=== PATIENT | female | born 1975 | race African-American/Black ===

== ENCOUNTER 2022-12-08 11:20 | Outpatient (OUT) | payer MEDICAID, SELFPAY ==
--- NOTE | 2022-12-08 11:27 | MM_ITS ---
Patient: EVELIA COSTA Exam Date: 12/08/2022 : 1975 Gender:F Ordering : DR Dwayne Bermudez . Admission #: [id number] Family : Non-Staff Physician Order #: [id number] CLICK HERE TO VIEW EXAM RADIOLOGY REPORT PROCEDURE: MM TOMOSYNTHESIS SCREENING BI COMPARISON: MG MAMM SCREEN 3D MELODIE CAD, 08/07/2020. MG MAMM SCREEN 3D MELODIE CAD, 10/29/2021. INDICATIONS: Screening Calculator Name NCI Breast Cancer Risk Assessment Tool 5 Year Breast Cancer Risk 1.00% Lifetime Breast Cancer Risk 8.90% Personal Breast Cancer No Personal Ovarian Cancer No Treatments None Family Cancers None LOCATION: [facility] BREAST COMPOSITION: Scattered areas fibroglandular density. FINDINGS: DIAGNOSTIC CATEGORY 2--BENIGN FINDING. NO CHANGE FROM COMPARISON. Scattered benign-appearing calcifications are present. Scattered benign-appearing lymph nodes are present. RIGHT BREAST: No significant suspicious finding. LEFT BREAST: No significant suspicious finding. RECOMMENDATIONS: ROUTINE MAMMOGRAM AND CLINICAL EVALUATION IN 12 MONTHS. PLEASE NOTE: A NORMAL MAMMOGRAM DOES NOT EXCLUDE THE POSSIBILITY OF BREAST CANCER. A CLINICALLY SUSPICIOUS PALPABLE LUMP SHOULD BE BIOPSIED. Dictated by: Tu Daly MD on 12/08/2022 at 14:30 Approved by: Tu Daly MD on 12/08/2022 at 14:34
== END 2022-12-08 11:21 | disposition home or self-care (01) ==
LOC: MAMMO 11:20
PROVIDERS: Visit Provider Obstetrics & Gynecology
DX: Z12.31 Encounter for screening mammogram for malignant neoplasm of breast (principal); Z01.419 Encounter for gynecological examination (general) (routine) without abnormal findings
CPT/HCPCS: 77063; 77067; 87624; G0145

== ENCOUNTER 2022-12-08 20:54 | Outpatient (REF) | payer MEDICAID, SELFPAY ==
[2022-12-11 10:10] LABS: Age Gdln ACOG Testing Note (.); HPV Aptima Negative (Negative); IGP, Aptima HPV, rfx 16/18,45 Note (.)
== END 2022-12-08 20:55 | disposition home or self-care (01) ==
LOC: LAB 20:54
PROVIDERS: Visit Provider Physician Assistant
DX: Z01.419 Encounter for gynecological examination (general) (routine) without abnormal findings (principal)
CPT/HCPCS: 87624; G0145

== ENCOUNTER 2023-12-28 10:00 | Outpatient (OUT) | payer OTHER, SELFPAY ==
--- NOTE | 2023-12-28 10:11 | MM_ITS ---
Patient Name: EVELIA COSTA MR#: [id number] : 1975 Exam Date: 12/28/2023 Ordering Doctor: DR Dwayne Bermudez . RADIOLOGY REPORT PROCEDURE: MM TOMOSYNTHESIS SCREENING BI COMPARISON: MG MAMM SCREEN 3D MELODIE CAD, 10/29/2021. MM TOMOSYNTHESIS SCREENING BI, 12/08/2022. INDICATIONS: Screening Calculator Name NCI Breast Cancer Risk Assessment Tool 5 Year Breast Cancer Risk 1.10% Lifetime Breast Cancer Risk 8.70% Personal Breast Cancer No Personal Ovarian Cancer No Treatments None Family Cancers None LOCATION: [facility] BREAST COMPOSITION: There are scattered areas of fibroglandular density. FINDINGS: DIAGNOSTIC CATEGORY 1--NEGATIVE. NO CHANGE FROM COMPARISON ASSESSMENT. Scattered benign-appearing calcifications are present. Scattered benign-appearing lymph nodes are present. RIGHT BREAST: No significant suspicious finding. LEFT BREAST: No significant suspicious finding. RECOMMENDATIONS: ROUTINE MAMMOGRAM AND CLINICAL EVALUATION IN 12 MONTHS. PLEASE NOTE: A NORMAL MAMMOGRAM DOES NOT EXCLUDE THE POSSIBILITY OF BREAST CANCER. A CLINICALLY SUSPICIOUS PALPABLE LUMP SHOULD BE BIOPSIED. Dictated by: Tu Daly MD on 12/28/2023 at 14:29 Approved by: Tu Daly MD on 12/28/2023 at 14:30
== END 2023-12-28 10:01 | disposition home or self-care (01) ==
LOC: MAMMO 10:03
PROVIDERS: Visit Provider Obstetrics & Gynecology
DX: Z12.31 Encounter for screening mammogram for malignant neoplasm of breast (principal)
CPT/HCPCS: 77063; 77067

== ENCOUNTER 2023-12-28 22:39 | Outpatient (REF) | payer OTHER, SELFPAY | END 2023-12-28 22:40 | disposition home or self-care (01) | LOC: LAB 22:39 | PROVIDERS: Visit Provider Physician Assistant | DX: Z12.31 Encounter for screening mammogram for malignant neoplasm of breast (principal); Z01.419 Encounter for gynecological examination (general) (routine) without abnormal findings | CPT/HCPCS: 87624; 88175 ==

== ENCOUNTER 2025-01-16 20:46 | Outpatient (REF) | payer OTHER, SELFPAY ==
--- OUTSIDE RECORDS SUMMARY | 2025-01-06 04:01 | XMS_ITS | Continuity of Care Document ---
Author Organization [facility] Address [address] [place] [address] Phone Care Team Providers Care Bleach Maker Name Role Phone Daija Doherty Unavailable Unavailable Allergies, Adverse Reactions, Alerts Substance Reaction Status Criticality KETOROLAC TROMETHAMINE Active No In formation Medications Medication Instructions Dosage Effective Dates (start - stop) Status Comments buspirone 10 mg tablet take 1 tablet by oral route 2 times every day as needed - Active clindamycin HCl 300 mg capsule take 1 capsule by oral route every 6 hours for 7 days - Active ibuprofen 600 mg tablet take 1 tablet by oral route 2 times every day with food as needed for pain as needed - Active M79.672 amlodipine 5 mg tablet take 1 tablet by oral route every day 5 MG - Active I10 metoprolol succinate ER 100 mg tablet,extended release 24 hr take 1 tablet by oral route every day 100 MG - Active lisinopril 10 mg-hydrochlorothia zide 12.5 mg tablet take 1 tablet by oral route every day 1.00 tablet - Active clonidine HCl 0.1 mg tablet take 1 tablet by oral route every day 0.1 MG - Active Klor-Con 20 mEq oral packet take 1 packet by oral route 2 times every day dissolved in 4-6 ounces of cold water or juice 20 MEQ - Active I10 buspirone 10 mg tablet take 1 tablet by oral route 2 times every day as needed - No Longer Active Procedures Procedure Date PREV VISIT, EST, AGE 40-64 OFFICE/OUTPATIENT VISIT, EST Post Op Visit Dental Oral Hygiene Instruction Intraoral-periapical 1st Film Bitewig-single Film Post Op Visit Dental Oral Hygiene Instruction PREV VISIT, EST, AGE 40-64 OFFICE/OUTPATIENT VISIT, EST Oral Hygiene Instruction Post Op Visit Dental OFFICE/OUTPATIENT VISIT, EST OFFICE/OUTPATIENT VISIT, EST COVID-19 Antigen Test COVID-19 Antigen Test Resin Composite 2s; Posterior Treatment Completed Nutrit Couns For Control Of Boundary Dis May Oral Hygiene Instruction Resin Composite 2s; Posterior Prophylaxis Adult Bitewings Four Films Low Risk Nutrit Couns For Control Of Boundary Dis Apr Oral Hygiene Instruction Alcohol/drug screening ROUTINE VENIPUNCTURE PREV VISIT, EST, AGE 40-64 OFFICE/OUTPATIENT VISIT, EST Prophylaxis Adult Oral Hygiene Instruction OFFICE/OUTPATIENT VISIT, EST OFFICE/OUTPATIENT VISIT, EST ROUTINE VENIPUNCTURE OFFICE/OUTPATIENT VISIT, EST OFFICE/OUTPATIENT VISIT, EST Bitewings Four Films Prophylaxis Adult Periodic Oral Eval Estab Patient 2021 Oral Hygiene Instruction ROUTINE VENIPUNCTURE OFFICE/OUTPATIENT VISIT, EST OFFICE/OUTPATIENT VISIT, EST Pfizer COVID Vaccine Admin Dose 2 COVID-19 Pfizer Covid Testing [facility] OFFICE/OUTPATIENT VISIT, EST Prophylaxis Adult Oral Hygiene Instruction Pfizer COVID Vaccine Admin Dose 1 COVID-19 Pfizer CHIROPRACTIC MANIPULATION CHIROPRACTIC MANIPULATION ROUTINE VENIPUNCTURE OFFICE/OUTPATIENT VISIT, EST OFFICE/OUTPATIENT VISIT, EST CHIROPRACTIC MANIPULATION CHIROPRACTIC MANIPULATION CHIROPRACTIC MANIPULATION Oral Hygiene Instruction Prophylaxis Adult Bitewings Four Films Periodic Oral Eval Estab Patient 2020 OFFICE/OUTPATIENT VISIT, EST OFFICE/OUTPATIENT VISIT, EST Covid Testing [facility] CHIROPRACTIC MANIPULATION CHIROPRACTIC MANIPULATION OFFICE/OUTPATIENT VISIT, EST ROUTINE VENIPUNCTURE CHIROPRACTIC MANIPULATION Prophylaxis Adult Oral Hygiene Instruction CHIROPRACTIC MANIPULATION CHIROPRACTIC MANIPULATION Covid Testing [facility] ROUTINE VENIPUNCTURE OFFICE/OUTPATIENT VISIT, EST OFFICE/OUTPATIENT VISIT, EST Periodic Oral Eval Estab Patient 2019 Bitewings Four Films Prophylaxis Adult Oral Hygiene Instruction CHIROPRACTIC MANIPULATION OFFICE/OUTPATIENT VISIT, EST OFFICE/OUTPATIENT VISIT, EST CHIROPRACTIC MANIPULATION OFFICE/OUTPATIENT VISIT, EST CHIROPRACTIC MANIPULATION CHIROPRACTIC MANIPULATION CHIROPRACTIC MANIPULATION CHIROPRACTIC MANIPULATION CHIROPRACTIC MANIPULATION OFFICE/OUTPATIENT VISIT, EST CHIROPRACTIC MANIPULATION Bitewings Four Films Periodic Oral Eval Estab Patient 2017 Prophylaxis Adult Oral Hygiene Instruction OFFICE/OUTPATIENT VISIT, EST ROUTINE VENIPUNCTURE OFFICE/OUTPATIENT VISIT, EST No Charge Resin Composite 1s; Posterior 7 Prophylaxis Adult Oral Hygiene Instruction Periodic Oral Eval Estab Patient 2016 OFFICE/OUTPATIENT VISIT, EST OFFICE/OUTPATIENT VISIT, EST OFFICE/OUTPATIENT VISIT, EST Bitewings Four Films Periodic Oral Eval Estab Patient 2015 Prophylaxis Adult Oral Hygiene Instruction OFFICE/OUTPATIENT VISIT, EST OFFICE/OUTPATIENT VISIT, EST PREVENTIVE NEW AGE 40-64 Extract; Erupted Th/exposted Rt 015 Bitewings Four Films Periodic Oral Eval Estab Patient 2013 Prophylaxis Adult Tobacco Counseling Oral Hygiene Instruction OFFICE/OUTPATIENT VISIT, EST Prophylaxis Adult Oral Hygiene Instruction Amalgam 2 Surf Prim/perm Prophylaxis Adult Oral Hygiene Instruction Intraoral-complete Series (bw) 13 Comp Oral Eval New/estab Patient 2012 Protective Orthodoxy Limited Oral Eval Intraoral-periapical 1st Film 3 Advance Directives Directive Yes / No Effective Date File Name No Information Encounters Encounter Description Practice Location Reason(s) For Visit Diagnoses Date Provider Providers Copied on Encounter [facility], [address] [place] [address], [place], [place], [id number] , [place] tel:[phone] [facility]LY [facility], [facility] No Information 5 Addy Choe. [address] [place] [address], [id number], [place]. tel:[phone] [facility], [address] [place] [address], [id number] , [place] tel:[phone] [facility] No Information 5 Addy Choe. [address] [place] [address], [id number], [place]. tel:[phone] [facility], [address] [place] [address], [id number] , [place] tel: [phone] [facility], [facility] No Information 5 Addy Choe. [address] [place] [address], [address], [place]. tel:[phone] PREV VISIT, EST, AGE 40-64 [facility], [address] [place] [address], [id number] , [place] tel: [phone] [facility], [facility] Annual wellness (chief complaint) lab draw (chief complaint) Depression with anxietyEssential hypertensionHype rlipidemiaPolyur iaScreening for HIV (human immunodeficiency virus)Encounter for hepatitis C screening test for low risk patientUmbilical dischargeAnnual physical examScreening mammogram for breast cancer 5 Addy Choe. [address] [place] [address], [address], [place]. tel:[phone] OFFICE/OUTPA TIENT VISIT, EST [facility], [address] [place] [address], [id number] , [place] tel:[phone] [facility] [place] HTN (chief complaint) Essential hypertension 4 Addy Choe. [address] [place] [address], [address], [place]. tel:[phone] [facility], [address] [place] [address], [id number] , [place] tel:[phone] [facility], [facility] Dental Clinic filling (chief complaint) Encounter for screening for dental disorders 4 Krish RODNEYAmada Jeanine. . tel:[phone] [facility], [address] [place] [address], [id number] , [place] tel: [phone] Dental Clinic dental limited (chief complaint) Encounter for screening for dental disorders 4 Krish JEM Jeanine. . tel:[phone] PREV VISIT, [facility], AGE 40-64 [facility], [address] [place] [address], [id number] , [place] tel:[phone] [facility] [place] Annual wellness (chief complaint) Encounter for general adult medical examination without abnormal findingsEssentia l hypertensionBody mass index [BMI] 38.0-38.9, adultAnxietyFati brady, unspecified typeEncounter for general adult medical examination without abnormal findings 4 Addy Choe. [address] [place] [address], [address], [place]. tel:[phone] OFFICE/OUTPA TIENT VISIT, [facility], [address] [place] [address], [id number] , [place] tel: [phone] [place] 3 month HTN (chief complaint) Essential hypertensionAnxi etyBody mass index [BMI] 37.0-37.9, adult 3 Addy Choe. [address] [place] [address], [address], [place]. tel:[phone] [facility], [address] [place] [address], [id number] , [place] tel: [phone] Dental Clinic [place] (chief complaint) Encounter for screening for dental disorders 3 Krish Solorzano. . tel:[phone] OFFICE/OUTPA TIENT VISIT, [facility], [address] [place] [address], [id number] , [place] tel:[phone] [facility] [place] f/u HTN (chief complaint) Body mass index [BMI] 37.0-37.9, adultEssential hypertension 3 Addy Choe. [address] [place] [address], [address], [place]. tel:[phone] OFFICE/OUTPA TIENT VISIT, EST [facility], [address] [place] [address], [id number] , [place] tel:[phone] [facility] sick visit (chief complaint) blood pressure (chief complaint) Essential hypertensionAcut e bronchitis, unspecified organismBody mass index [BMI] 36.0-36.9, adultEncounter for screening colonoscopyH/O mammogramScreeni ng for HPV (human papillomavirus)S creening for HPV (human papillomavirus) 3 Addy Choe. [address] [place] [address], [address], [place]. tel:[phone] [facility], [address] [place] [address], [id number] , [place] tel:[phone] COVID [facility] Encounter For Screening For Covid-19 3 Addy Choe. [address] [place] [address], [address], [place]. tel:[phone] [facility], [address] [place] [address], [id number] , [place] tel:[phone] Dental Clinic [place] (chief complaint) Encounter for screening for dental disorders 0- 3 Krish PARISH Jeanine. . tel:[phone] [facility], [address] [place] [address], [id number] , [place] tel:[phone] [facility] [place] (chief complaint) Encounter for screening for dental disorders 3- 3 Krish RODNEYS Jeanine. . tel:[phone] [facility], [address] [place] [address], [id number] , [place] tel:[phone] Dental Clinic Adult Prophy (chief complaint) Encounter for screening for dental disorders 7- 3 Hemanth PARISH Jean-Pierre. [address] [place] [address], [address], [place]. tel:[phone] PREV VISIT, [facility], AGE 40-64 [facility], [address] [place] [address], [id number] , [place] tel: [phone] MIKI [place] Annual (chief complaint) Lab Draw (chief complaint) Encounter for screening examination for other mental health and behavioral disordersEncntr for general adult medical exam w/o abnormal findingsBody mass index [BMI] 35.0-35.9, adultFrequent headachesAnxiety Essential hypertensionEnco unter for screening colonoscopy 3 Addy Choe. [address] [place] [address], [address], [place]. tel:[phone] OFFICE/OUTPA TIENT VISIT, [facility], [address] [place] [address], [id number] , [place] tel: [phone] [place] 3 Month HTN (chief complaint) Essential hypertensionBody mass index [BMI] 36.0-36.9, adult 2 Addy Choe. [address] [place] [address], [address], [place]. tel:[phone] [facility], [address] [place] [address], [id number] , [place] tel: [phone] Dental Clinic prophy (chief complaint) Encounter for screening for dental disorders 2 Hemanth Moreojn. [address] [place] [address], [address], [place]. tel:[phone] OFFICE/OUTPA TIENT VISIT, [facility], [address] [place] [address], [id number] , [place] tel:[phone] [employer] (chief complaint) History of COVID-19Body mass index [BMI] 37.0-37.9, adult 2 Hal Aguirre. [address] [place] [address], [id number], [place]. tel:[phone] OFFICE/OUTPA TIENT VISIT, [facility], [address] [place] [address], [id number] , [place] tel:[phone] [facility] [place] f/u HTN (chief complaint) Body mass index [BMI] 37.0-37.9, adultEssential hypertensionHist ory of COVID-19 2 Addy Choe. [address] [place], [address], [place]. tel:[phone] OFFICE/OUTPA TIENT VISIT, [facility], [address] [place] [address], [id number] , [place] tel: [phone] [facility] Problem List (chief complaint) History of COVID-19Body mass index [BMI] 37.0-37.9, adult 2 David Burr. [address] [place] [address], [id number], [place]. tel:[phone] OFFICE/OUTPA TIENT VISIT, [facility], [address] [place] [address], [id number] , [place] tel: [phone] [facility] Bp Med Refill (chief complaint) Essential hypertensionBody mass index [BMI] 37.0-37.9, adult 2 Addy Choe. [address] [place] [address], [address], [place]. [phone] [address] [place] [address], [address] [place] [address], [id number] , [place] tel: [phone] Dental Clinic prophy Adult (chief complaint) Encounter for screening for dental disorders 2 Kev Bradshaw. [address] [place], [address], [place]. tel:[phone] [address] [place] [address], [address] [place] [address], [id number] , [place] tel: [phone] [facility] Lab Draw (chief complaint) Encounter for general adult medical examination without abnormal findings 2 Chandler Arreola. [address] [place] [address], [address], [place]. tel:[phone] OFFICE/OUTPA TIENT VISIT, [facility], [address] [place] [address], [id number] , [place] tel:[phone] [facility] f/u BP (chief complaint) Body mass index [BMI] 37.0-37.9, adultEssential hypertensionHype rlipidemiaFatigu e, unspecified typePost-nasal drainage 2 Chandler Arreola. [address] [place] [address], [address], [place]. tel:[phone] OFFICE/OUTPA TIENT VISIT, [facility], [address] [place] [address], [id number] , [place] tel:[phone] [facility] b/p (chief complaint) Essential hypertensionBody mass index [BMI] 38.0-38.9, adultDepression with anxietyImpacted cerumen of left ear 1 Marti Choe. [address] [place] [address], [id number], [place]. tel:[phone] [address] [place] [address], [address] [place] [address], [id number] , [place] tel:[phone] COVID [facility] No Information 1 Luca Lipscomb. [address] [place] [address], [id number], [place]. tel:[phone] [address] [place] [address], [address] [place] [address], [id number] , [place] tel:[phone] [facility] Encounter For Screening For Covid-19Encounte r for screening for other viral diseases 1 Luca Lipscomb. [address] [place] [address], [id number], [place]. tel:[phone] OFFICE/OUTPA TIENT VISIT, [facility], [address] [place] [address], [id number] , [place] tel:[phone] [facility] b/p check (chief complaint) Body mass index [BMI] 38.0-38.9, adultEssential hypertensionDepr ession with anxiety 1 Marti Choe. [address] [place], [place], [id number], [place]. tel:[phone] [facility], [address] [place] [address], [id number] , [place] tel:[phone] Dental Clinic prophy (chief complaint) Encounter for screening for dental disorders 1 Mumtaz Fischer. [address] [place], [place], [id number], [place]. tel:[phone] [facility], [address] [place] [address], [id number] , [place] tel:[phone] [facility] No Information 1 Luca Lipscomb. [address] [place], [place], [id number], [place]. tel:[phone] [address] [place] [address], [address] [place] [address], [id number] , [place] tel:[phone] [facility] lumbar spine (chief complaint) lumbar spine (chief complaint) Segmental and somatic dysfunction of lumbar regionLow back painSegmental and somatic dysfunction of cervical region 1 Lico Gonzalez. [address] [place], [place], [id number], [place]. tel:[phone] [address] [place] [address], [address] [place] [address], [id number] , [place] tel:[phone] [facility] lumbar spine (chief complaint) lumbar spine (chief complaint) Segmental and somatic dysfunction of lumbar regionLow back painSegmental and somatic dysfunction of cervical region 1 Lico Gonzalez. [address] [place], [place], [id number], [place]. tel:[phone] [facility], [address] [place] [address], [id number] , [place] tel:[phone] [facility] lab work (chief complaint) Encounter for general adult medical examination without abnormal findings 1 Marti Choe. [address] [place], [place], [id number], [place]. tel:[phone] OFFICE/OUTPA TIENT VISIT, [facility], [address] [place], [place], [id number] , [place] tel:[phone] [facility] er f/u (chief complaint) Hospital discharge follow-upAnnual physical exam 1 Marti Choe. [address] [place], [place], [id number], [place]. tel:[phone] OFFICE/OUTPA TIENT VISIT, [facility], [address] [place], [place], [id number] , [place] tel: [phone] [facility] Follow up BP/Anxiety (chief complaint) Body mass index [BMI] 38.0-38.9, adultEssential hypertensionDepr ession with anxietyPain in lt footClass 2 obesity due to excess calories without serious comorbidity with body mass index (BMI) of 38.0 to 38.9 in adult May- 1 Marti Choe. [address] [place], [place], [id number], [place]. tel:[phone] [address] [place] [address], [address] [place] [address], [id number] , [place] tel: [phone] [facility] lumbar spine (chief complaint) lumbar spine (chief complaint) Segmental and somatic dysfunction of lumbar regionLow back painSegmental and somatic dysfunction of cervical region 1 Lico Gonzalez. [address] [place] [address], [id number], [place]. tel:[phone] [address] [place] [address], [address] [place] [address], [id number] , [place] tel: [phone] [facility] lumbar spine (chief complaint) lumbar spine (chief complaint) Segmental and somatic dysfunction of lumbar regionLow back painSegmental and somatic dysfunction of cervical region 1 Lico Gonzalez. [address] [place] [address], [id number], [place]. tel:[phone] [facility], [address] [place], [place], [id number] , [place] tel: [phone] [facility] lumbar spine (chief complaint) lumbar spine (chief complaint) Segmental and somatic dysfunction of lumbar regionLow back painSegmental and somatic dysfunction of cervical regionCervicalgi a 1 Lico Gonzalez. [address] [place], [place], [id number], [place]. tel:[phone] [facility], [address] [place] [address], [id number] , [place] tel: [phone] Dental Clinic Prophy (chief complaint) Encounter for screening for dental disorders 1 Dali Wayne. [address] [place] [address], [id number], [place]. tel:[phone] OFFICE/OUTPA TIENT VISIT, [facility], [address] [place] [address], [id number] , [place] tel: [phone] [facility] f/u anxiety (chief complaint) Essential hypertensionAnxi ety 1 Marti Choe. [address] [place] [address], [id number], [place]. tel:[phone] OFFICE/OUTPA TIENT VISIT, [facility], [address] [place] [address], [id number] , [place] tel: [phone] [facility] Med Refill (chief complaint) Body mass index [BMI] 39.0-39.9, adultDepression with anxietyEssential hypertensionPain in lt foot 0 Marti Choe. [address] [place] [address], [id number], [place]. tel:[phone] [facility], [address] [place] [address], [id number] , [place] tel: [phone] COVID [facility] Encounter for screening for other viral diseases 0 Luca Lipscomb. [address] [place] [address], [id number], [place]. tel:[phone] [facility], [address] [place] [address], [id number] , tel: [phone] [facility] lumbar spine (chief complaint) lumbar spine (chief complaint) Segmental and somatic dysfunction of lumbar regionLow back painSegmental and somatic dysfunction of cervical regionCervicalgi a 0 7-202 0 Lico Gonzalez. [address] [place], [place], [id number], [place]. tel:[phone] [address] [place] [address], [address] [place] [address], [id number] , tel: [phone] [facility] lumbar spine (chief complaint) lumbar spine (chief complaint) Segmental and somatic dysfunction of lumbar regionLow back painSegmental and somatic dysfunction of cervical region Sep-2 3- 0 Lico Gonzalez. [address] [place] [address], [id number], [place]. tel:[phone] OFFICE/OUTPA TIENT VISIT, EST [facility], [address] [place] [address], [id number] , [place] tel: [phone] [facility] med refill and bp check (chief complaint) Essential hypertensionBody mass index (BMI) 39.0-39.9, adultFatigue, unspecified typeObesity (BMI 35.0-39.9 without comorbidity) Sep-0 3 0 Marti Choe. [address] [place] [address], [id number], [place]. tel:[phone] [address] [place] [address], [address] [place] [address], [id number] , [place] tel: [phone] [facility] cervical spine (chief complaint) cervical spine (chief complaint) Segmental and somatic dysfunction of lumbar regionLow back painSegmental and somatic dysfunction of cervical regionCervicalgi a Sep-0 1-202 0 Lico Gonzalez. [address] [place] [address], [id number], [place]. tel:[phone] [address] [place] [address], [address] [place], [place], [id number] , [place] tel:[phone] Dental Clinic Prophy (chief complaint) Encounter for screening for dental disorders 0 Mumtaz Fischer. [address] [place], [place], [id number], [place]. tel:[phone] [place] [address], [address] [place] [address], [id number] , [place] tel:[phone] [facility] cervical spine (chief complaint) cervical spine (chief complaint) Segmental and somatic dysfunction of cervical regionCervicalgi aSegmental and somatic dysfunction of lumbar regionLow back pain 0 Lico Gonzalez. [address] [place], [place], [id number], [place]. tel:[phone] [address] [place] [address], [address] [place] [address], [id number] , [place] tel:[phone] [facility] lumbar spine (chief complaint) lumbar spine (chief complaint) Segmental and somatic dysfunction of lumbar regionLow back painSegmental and somatic dysfunction of cervical region 0 Lico Gonzalez. [address] [place], [place], [id number], [place]. tel:[phone] [address] [place] [address], [address] [place] [address], [id number] , [place] [phone] COVID [facility] Encounter for screening for other viral diseases 0 Luca Lipscomb. [address] [place], [place], [id number], [place]. tel:[phone] OFFICE/OUTPA TIENT VISIT, EST [facility], [address] [place] [address], [id number] , [place] tel:[phone] [facility] med refill (chief complaint) lab work (chief complaint) Annual physical examEssential hypertensionBody mass index (BMI) 40.0-44.9, adultClass 3 severe obesity due to excess calories without serious comorbidity with body mass index (BMI) of 40.0 to 44.9 in adult 0 Marti Choe. [address] [place], [place], [id number], [place]. tel:[phone] OFFICE/OUTPA TIENT VISIT, [facility], [address] [place], [place], [id number] , [place] tel: [phone] [facility] sore throat (chief complaint) other (chief complaint) Sore throatPost-nasal drainage 0 Marti Choe. [address] [place], [place], [id number], [place]. tel:[phone] [facility], [address] [place] [address], [id number] , [place] tel:[phone] [facility] Covid 19 (chief complaint) Advice given about COVID-19 virus by telephone 0 Marti Choe. [address] [place], [place], [id number], [place]. tel:[phone] [facility], [address] [place] [address], [id number] , [place] tel:[phone] Dental Clinic Encounter for screening for dental disorders 0 Sabrina Paz. [address] [place], [place], [id number], [place]. tel:[phone] [facility], [address] [place] [address], [id number] , [place] tel:[phone] [facility] lumbar spine (chief complaint) lumbar spine (chief complaint) Segmental and somatic dysfunction of lumbar regionLow back painSegmental and somatic dysfunction of cervical region 0 Lico Gonzalez. [address] [place], [place], [id number], [place]. tel:[phone] OFFICE/OUTPA TIENT VISIT, [facility], [address] [place], [place], [id number] , [place] tel:[phone] [facility] bp check (chief complaint) Chest pain, unspecified typeEssential hypertensionBody mass index (BMI) 40.0-44.9, adult Erich-0 7-202 0 Marti Choe. [address] [place], [place], [id number], [place]. tel:[phone] OFFICE/OUTPA TIENT VISIT, [facility], [address] [place], [place], [id number] , [place] tel: [phone] [facility] med refill (chief complaint) Body mass index (BMI) 39.0-39.9, adultEssential hypertensionPalp itations 8-201 9 Marti Choe. [address] [place], [place], [id number], [place]. tel:[phone] [place] [address], [address] [place] [address], [id number] , [place] tel: [phone] [facility] lumbar spine (chief complaint) lumbar spine (chief complaint) Segmental and somatic dysfunction of lumbar regionLow back painSegmental and somatic dysfunction of cervical region 3 0-201 9 Lico Gonzalez. [address] [place], [place], [id number], [place]. tel:[phone] OFFICE/OUTPA TIENT VISIT, [facility], [address] [place] [address], [id number] , [place] tel: [phone] [facility] BP check (chief complaint) Essential hypertension 9 Marti Choe. [address] [place], [place], [id number], [place]. tel:[phone] [facility], [address] [place] [address], [id number] , [place] tel:[phone] [facility] lumbar spine (chief complaint) lumbar spine (chief complaint) Segmental and somatic dysfunction of lumbar regionLow back painSegmental and somatic dysfunction of cervical region 0 9 9 Lico Gonzalez. [address] [place], [place], [id number], [place]. tel:[phone] [facility], [address] [place], [place], [id number] , [place] tel: [phone] [facility] lumbar spine (chief complaint) lumbar spine (chief complaint) Segmental and somatic dysfunction of lumbar regionLow back painSegmental and somatic dysfunction of cervical region 9 Lico Gonzalez. [address] [place] [address], [id number], [place]. tel:[phone] [facility], [address] [place] [address], [id number] , [place] tel: [phone] [facility] lumbar spine (chief complaint) lumbar spine (chief complaint) Segmental and somatic dysfunction of lumbar regionLow back painSegmental and somatic dysfunction of cervical region 9 Lico Gonzalez. [address] [place] [address], [id number], [place]. tel:[phone] [facility], [address] [place] [address], [id number] , [place] tel: [phone] [facility] BP check. labs (chief complaint) Venipunctu re (chief complaint) Body mass index (BMI) 39.0-39.9, adultEssential hypertensionAnnu al physical examEncounter for hepatitis C screening test for low risk patient 0 9 Marti Choe. [address] [place] [address], [id number], [place]. tel:[phone] [facility], [address] [place] [address], [id number] , [place] tel: [phone] [facility] lumbar spine (chief complaint) lumbar spine (chief complaint) Segmental and somatic dysfunction of lumbar regionLow back painSegmental and somatic dysfunction of cervical region 9 Lico Gonzalez. [address] [place] [address], [id number], [place]. tel:[phone] [facility], [address] [place] [address], [id number] , [place] tel: [phone] [facility] lumbar spine (chief complaint) lumbar spine (chief complaint) Segmental and somatic dysfunction of lumbar regionLow back painSegmental and somatic dysfunction of cervical region 9 Lico Gonzalez. [address] [place], [place], [id number], [place]. tel:[phone] [facility], [address] [place], [place], [id number] , [place] tel: [phone] [facility] lumbar spine (chief complaint) lumbar spine (chief complaint) Segmental and somatic dysfunction of lumbar regionLow back painSegmental and somatic dysfunction of cervical region 0 9 Lico Gonzalez. [address] [place], [place], [id number], [place]. tel:[phone] [facility], [address] [place] [address], [id number] , [place] tel: [phone] [facility] lumbar spine (chief complaint) lumbar spine (chief complaint) Segmental and somatic dysfunction of lumbar regionLow back painSegmental and somatic dysfunction of cervical region 8 Lico Gonzalez. [address] [place], [place], [id number], [place]. tel:[phone] [facility], [address] [place] [address], [id number] , [place] tel: [phone] [facility] lumbar spine (chief complaint) lumbar spine (chief complaint) Segmental and somatic dysfunction of lumbar regionLow back painSegmental and somatic dysfunction of cervical region 8 Lico Gonzalez. [address] [place], [place], [id number], [place]. tel:[phone] [facility], [address] [place] [address], [id number] , [place] tel: [phone] [facility] lumbar spine (chief complaint) lumbar spine (chief complaint) Segmental and somatic dysfunction of lumbar regionLow back painSegmental and somatic dysfunction of cervical region 8 Lico Gonzalez. [address] [place], [place], [id number], [place]. tel:[phone] [facility], [address] [place] [address], [id number] , [place] tel: [phone] [facility] lumbar spine (chief complaint) lumbar spine (chief complaint) Segmental and somatic dysfunction of lumbar regionLow back painRadiculopath y, lumbar regionSegmental and somatic dysfunction of cervical region 8 Lico Gonzalez. [address] [place], [place], [id number], [place]. tel:[phone] [facility], [address] [place] [address], [id number] , [place] tel: [phone] [facility] lumbar spine (chief complaint) lumbar spine (chief complaint) Segmental and somatic dysfunction of lumbar regionLow back painRadiculopath y, lumbar regionSegmental and somatic dysfunction of cervical region 8 Lico Gonzalez. [address] [place] [address], [id number], [place]. tel:[phone] [facility], [address] [place] [address], [id number] , [place] tel: [phone] [facility] lumbar spine (chief complaint) lumbar spine (chief complaint) Segmental and somatic dysfunction of lumbar regionLow back painRadiculopath y, lumbar regionSegmental and somatic dysfunction of cervical region 8 Lico Gonzalez. [address] [place] [address], [id number], [place]. tel:[phone] [facility], [address] [place] [address], [id number] , [place] tel: [phone] [facility] lumbar spine (chief complaint) lumbar spine (chief complaint) Segmental and somatic dysfunction of lumbar regionLow back painRadiculopath y, lumbar regionSegmental and somatic dysfunction of cervical region 8 Lico Gonzalez. [address] [place] [address], [id number], [place]. tel:[phone] OFFICE/OUTPA TIENT VISIT, EST [facility], [address] [place] [address], [id number] , [place] tel:[phone] [facility] Sick visit (chief complaint) CoughUpper respiratory infection with cough and congestionBody mass index (BMI) 39.0-39.9, adultEssential hypertension Sep- 8 Marti Choe. [address] [place], [place], [id number], [place]. tel:[phone] [facility], [address] [place] [address], [id number] , [place] tel:[phone] [facility] Spine Care (chief complaint) Segmental and somatic dysfunction of lumbar regionLow back painSegmental and somatic dysfunction of cervical region 8 Lico Gonzalez. [address] [place] [address], [id number], [place]. tel:[phone] [address] [place] [address], [address] [place] [address], [id number] , [place] tel: [phone] [facility] Spine Care (chief complaint) Segmental and somatic dysfunction of lumbar regionLow back painSegmental and somatic dysfunction of cervical region 8 Lico Gonzalez. [address] [place] [address], [id number], [place]. tel:[phone] [address] [place] [address], [address] [place] [address], [id number] , [place] tel: [phone] [facility] rash (chief complaint) mammogram (chief complaint) RLP (chief complaint) leg tightness (chief complaint) Skin rashTightness of leg fasciaEssential hypertensionBody mass index (BMI) 40.0-44.9, adult Han-02 25- 8 Marti Choe. [address] [place], [place], [id number], [place]. tel:[phone] [address] [place] [address], [address] [place] [address], [id number] , [place] tel:[phone] Dental Clinic Encounter for screening for dental disorders 8 Maryjo Hollis. [address] [place] [address], [id number], [place]. tel:[phone] 62 OFFICE/OUTPA TIENT VISIT, [facility], [address] [place] [address], [id number] , [place] tel:[phone] [facility] headaches (chief complaint) sore throat (chief complaint) Acute pharyngitis, unspecifiedHeada cheBody mass index (BMI) 40.0-44.9, adult 8 Tomasz Eason. [address] [place] [address], [id number], [place]. tel:[phone] [facility], [address] [place] [address], [id number] , [place] tel:[phone] [facility] bp check (chief complaint) med refill (chief complaint) Hypertension 8 Tomasz Eason. [address] [place] [address], [id number], [place]. tel:[phone] [facility], [address] [place] [address], [id number] , [place] tel:[phone] [facility] b/p follow up (chief complaint) HypertensionPalp itations 7 Tomasz Eason. [address] [place] [address], [id number], [place]. tel:[phone] [facility], [address] [place] [address], [id number] , [place] tel:[phone] [facility] HypertensionAnxi ety 7 Tomasz Eason. [address] [place] [address], [id number], [place]. tel:[phone] OFFICE/OUTPA TIENT VISIT, [facility], [address] [place] [address], [id number] , [place] tel:[phone] [facility] heel pain (chief complaint) B/P (chief complaint) Pain in lt footHypertension 7 Tomasz Eason. [address] [place], [place], [id number], [place]. tel:[phone] [facility], [address] [place], [place], [id number] , [place] tel:[phone] Dental Clinic filling (chief complaint) Encounter for screening for dental disorders 7 Cyrus BRANTLEY Jinbo. [address] [place], [address], [place]. tel:[phone] [facility], [address] [place], [place], [id number] , [place] tel:[phone] Dental Clinic filling (chief complaint) Encounter for screening for dental disorders 7 Marshall Norton. [address] [place], [address], [place]. tel:[phone] [facility], [address] [place] [address], [id number] , [place] tel:[phone] Dental Clinic prophy (chief complaint) Encounter for screening for dental disorders 0 7 Bridges DMD Jinbo. [address] [place] [address], [id number], [place]. tel:[phone] OFFICE/OUTPA TIENT VISIT, [facility], [address] [place] [address], [id number] , [place] tel:[phone] [facility] right knee pain (chief complaint) Pain in knee 6 Tomasz Eason. [address] [place], [place], [id number], [place]. tel:[phone] OFFICE/OUTPA TIENT VISIT, [facility], [address] [place] [address], [id number] , [place] tel:[phone] [facility] work physical (chief complaint) Encounter for pre-employment examination 6 Tomasz Eason. [address] [place] [address], [id number], [place]. tel:[phone] [facility], [address] [place], [place], [id number] , [place] tel:[phone] Dental Clinic Encounter for screening for dental disorders 6 Greg KARON Vilma. [address] [place], [place], [id number], [place]. tel:[phone] OFFICE/OUTPA TIENT VISIT, [facility], [address] [place], [place], [id number] , [place] tel:[phone] [facility] GERD w/o esophagitisHyper tension 6 Tomasz Eason. [address] [place], [place], [id number], [place]. tel:[phone] [facility], [address] [place] [address], [id number] , [place] tel: [phone] Dental Clinic prophy (chief complaint) Encounter for screening for dental disorders 6 Sabrina Paz. [address] [place], [place], [id number], [place]. tel:[phone] OFFICE/OUTPA TIENT VISIT, [facility], [address] [place], [place], [id number] , [place] tel:[phone] [facility] xray results (chief complaint) knee pain (chief complaint) Pain in kneeLow back pain 6 Tomasz Eason. [address] [place], [place], [id number], [place]. tel:[phone] [facility], [address] [place] [address], [id number] , [place] tel:[phone] [facility] Low back painPain in left hip 6 Tomasz Eason. [address] [place], [place], [id number], [place]. tel:[phone] OFFICE/OUTPA TIENT VISIT, [facility], [address] [place], [place], [id number] , [place] tel:[phone] [facility] pain (chief complaint) Low back painPain in left hip 6 Tomasz Eason. [address] [place], [place], [id number], [place]. tel:[phone] PREVENTIVE NEW AGE 40-64 [facility], [address] [place], [place], [id number] , [place] tel: [phone] [facility] est care (chief complaint) Acute bronchitis, unspecifiedHyper tensionEncounter for general adult medical exam w abnormal findings 5 Tomasz Eason. [address] [place], [place], [id number], [place]. tel:[phone] [facility], [address] [place] [address], [id number] , [place] tel: [phone] Dental Clinic Dental examination 5 Greg DMD May. [address] [place], [place], [id number], [place]. tel:[phone] [facility], [address] [place] [address], [id number] , [place] tel: [phone] [facility] Dental examination 4 Greg DMD May. [address] [place], [place], [id number], [place]. tel:[phone] OFFICE/OUTPA TIENT VISIT, EST [facility], [address] [place], [place], [id number] , [place] tel: [phone] [facility] Influenza Vaccine 4 Luca Lipscomb. [address] [place], [place], [id number], [place]. tel:[phone] [facility], [address] [place] [address], [id number] , [place] tel: [phone] Dental Clinic Dental examination 4 Greg DMD May. [address] [place], [place], [id number], [place]. tel:[phone] [facility], [address] [place] [address], [id number] , [place] tel: [phone] Dental Clinic Dental examination Apr-2 4 [facility] May. [address] [facility] [place], [id number], [place]. tel:[phone] [facility], [address] [place] [address] [place], [place], [id number] , [place] tel: [phone] Dental Clinic Dental examination Nov-0 3 [facility] May. [address] [place], [place], [id number], [place]. tel:[phone] [facility], [address] [place] [address], [id number] , [place] tel: [phone] Dental Clinic Dental examination Oct- 3 [facility] May. [address] [place], [place], [id number], [place]. tel:[phone] [facility], [address] [place] [address], [id number] , [place] tel: [phone] Dental Clinic Dental examination Sep- 3 [facility] May. [address] [place], [place], [id number], [place]. tel:[phone] [facility], [address] [place] [address], [id number] , [place] tel: [phone] Dental Clinic Dental examination Sep- 3 [facility] May. [address] [place], [place], [id number], [place]. tel:[phone] Family History Family Member Type Diagnosis Age At Onset Father Problem (finding) gout Mother Problem (finding) hypertension Father Problem (finding) raised blood lipids Mother Problem (finding) raised blood lipids Immunizations Vaccine Date Status Comments Flulaval/ Fluarix refused Source: Ne w Immunization Record Flulaval/ Fluarix refused Source: Ne w Immunization Record Pfizer COVID administered Source: New Imm unization Record Pfizer COVID administered Source: New Imm unization Record Influenza virus vaccine, quadrivalent, split virus, preservative free refused Source: New Immuniza tion Record Flu (split) (3 yrs or older) administered Note: Flu vis given. ; Source: New Immunization Record Payers Payer name Insurance type Covered republican ID Authoriza tion(s) [employer]/PPS CI [id number] [facility] PPS CI [id number] [facility] PPS CI [id number] [facility] [id number] Self Pay Cap 09 Social History Type Description Quantity Date Captured Comments Alcohol Use Details Unknown Caffeine Use Details Unknown Tobacco Use Status No Information Smoking Status No Information Sex Female Sexual Orientation Straight or heterosexual Gender Identity Female Chief Complaint And Reason For Visit No Information Reason For Referral Reason For Referral No Information Plan Of Treatment Date Type Action Status Goal Mammogram. Due on due Goal Influenza Vaccine. Due on due Goal Zoster vaccine (). Due on due Goal Lipid panel. Due on 030 due Goal Tdap Vaccine. Due on 2024 due Goal Depression screening. Due on due Goal Colonoscopy. Due on 033 due Goal PRAPARE ASSESSMENT. Due on due Goal HPV. Due on due Goal Unhealthy drug use screening . Due on due Goal Hepatitis C screening. Due o n due Goal Urinalysis. Due on 25 due Goal Tdap. Due on due Goal Diabetes screening. Due on N due Goal HPV. Due on due Goal Influenza Vaccine. Due on due Goal Lipid panel. Due on due Goal Mammogram. Due on due Goal Zoster vaccine (). Due on due Goal Colonoscopy. Due on due Goal Hepatitis C screening. Due o n due Goal PRAPARE ASSESSMENT. Due on due Goal Unhealthy drug use screening . Due on due Goal Tdap. Due on due Goal Depression screening. Due on due Goal Tdap Vaccine. Due on 2024 due Goal Diabetes screening. Due on due Goal Urinalysis. Due on due Goal Lipid panel. Due on due Goal Zoster vaccine (). Due on due Goal Colonoscopy. Due on due Goal Hepatitis C screening. Due o n due Goal Diabetes screening. Due on due Goal Depression screening. Due on due Goal Tdap Vaccine. Due on 2024 due Goal Mammogram. Due on 6 due Goal Unhealthy drug use screening . Due on due Goal Urinalysis. Due on due Goal Influenza Vaccine. Due on Oc due Goal PRAPARE ASSESSMENT. Due on due Goal HPV. Due on due Goal Tdap. Due on due Goal Tdap. Due on due Goal Colonoscopy. Due on due Goal HPV. Due on due Goal Lipid panel. Due on due Goal Urinalysis. Due on due Goal Mammogram. Due on due Goal Unhealthy drug use screening . Due on due Goal PRAPARE ASSESSMENT. Due on due Goal Diabetes screening. Due on due Goal Tdap Vaccine. Due on 2023 due Goal Hep A. Due on du e Goal Hepatitis C screening. Due o n due Goal Influenza Vaccine. Due on due Goal Depression screening. Due on due Goal Colonoscopy. Due on due Goal Unhealthy drug use screening . Due on due Goal Influenza Vaccine. Due on due Goal PRAPARE ASSESSMENT. Due on due Goal Hep A. Due on du e Goal Mammogram. Due on due Goal HPV. Due on due Goal Lipid panel. Due on due Goal Diabetes screening. Due on due Goal Urinalysis. Due on due Goal Depression screening. Due on due Goal Tdap Vaccine. Due on 2023 due Goal Tdap. Due on due Goal Hepatitis C screening. Due o n due Goal Hep A. Due on du e Goal Lipid panel. Due on due Goal Mammogram. Due on due Goal HPV. Due on due Goal PRAPARE ASSESSMENT. Due on due Goal Tdap. Due on due Goal Depression screening. Due on due Goal Unhealthy drug use screening . Due on due Goal Colonoscopy. Due on due Goal Tdap Vaccine. Due on 2023 due Goal Hepatitis C screening. Due o n due Goal Influenza Vaccine. Due on due Goal Urinalysis. Due on due Goal Diabetes screening. Due on due Goal Hep A. Due on du e Goal Hepatitis C screening. Due o n due Goal Mammogram. Due on due Goal Unhealthy drug use screening . Due on due Goal HPV. Due on due Goal Lipid panel. Due on due Goal Depression screening. Due on due Goal Colonoscopy. Due on due Goal Tdap Vaccine. Due on 2023 due Goal Urinalysis. Due on due Goal Diabetes screening. Due on due Goal PRAPARE ASSESSMENT. Due on due Goal Influenza Vaccine. Due on due Goal Tdap. Due on due Goal Dietary management education , guidance, and counseling completed Goal Depression screening. Due on due Goal Colonoscopy. Due on due Goal PRAPARE ASSESSMENT. Due on N due Goal Hepatitis C screening. Due o n due Goal Tdap. Due on due Goal Tdap Vaccine. Due on 2022 due Goal Influenza Vaccine. Due on due Goal Lipid panel. Due on due Goal Unhealthy drug use screening . Due on due Goal HPV. Due on due Goal Mammogram. Due on due Goal Hep A. Due on du e Goal Urinalysis. Due on due Goal Diabetes screening. Due on N due Goal Dietary management education , guidance, and counseling completed Goal Lipid panel. Due on due Goal Tdap Vaccine. Due on 2022 due Goal Influenza Vaccine. Due on due Goal PRAPARE ASSESSMENT. Due on A due Goal Diabetes screening. Due on A due Goal Urinalysis. Due on due Goal Depression screening. Due on due Goal Colonoscopy. Due on due Goal Tdap. Due on due Goal Mammogram. Due on due Goal Depression screening. Due on due Goal Diabetes screening. Due on A due Goal Hep A. Due on du e Goal Mammogram. Due on due Goal Lipid panel. Due on due Goal Tdap Vaccine. Due on 2022 due Goal Urinalysis. Due on due Goal PRAPARE ASSESSMENT. Due on A due Goal Tdap. Due on due Goal Colonoscopy. Due on due Goal Influenza Vaccine. Due on due Goal Dietary management education , guidance, and counseling completed Goal Mammogram. Due on due Goal Tdap Vaccine. Due on 2022 due Goal Urinalysis. Due on due Goal Influenza Vaccine. Due on due Goal Lipid panel. Due on due Goal Depression screening. Due on due Goal PRAPARE ASSESSMENT. Due on due Goal Diabetes screening. Due on due Goal Tdap. Due on due Goal Diabetes screening. Due on due Goal Tdap Vaccine. Due on 2022 due Goal PRAPARE ASSESSMENT. Due on due Goal Tdap. Due on due Goal Urinalysis. Due on due Goal Depression screening. Due on due Goal Lipid panel. Due on due Goal Influenza Vaccine. Due on due Goal Weight-reducing diet educati on completed Goal Depression screening. Due on due Goal Lipid panel. Due on due Goal PRAPARE ASSESSMENT. Due on A due Goal Influenza Vaccine. Due on Oc due Goal Tdap. Due on due Goal Hep A. Due on du e Goal Urinalysis. Due on due Goal Diabetes screening. Due on A due Goal Tdap Vaccine. Due on 2022 due Goal Tdap. Due on due Goal Influenza Vaccine. Due on due Goal Depression screening. Due on due Goal Urinalysis. Due on due Goal Lipid panel. Due on due Goal Diabetes screening. Due on due Goal PRAPARE ASSESSMENT. Due on due Goal Tdap Vaccine. Due on 2022 due Goal Influenza Vaccine. Due on due Goal Tdap. Due on due Goal PRAPARE ASSESSMENT. Due on due Goal Tdap Vaccine. Due on 2022 due Goal Depression screening. Due on due Goal Lipid panel. Due on due Goal Urinalysis. Due on due Goal Diabetes screening. Due on due Goal Tdap Vaccine. Due on 2022 due Goal Influenza Vaccine. Due on due Goal PRAPARE ASSESSMENT. Due on due Goal Urinalysis. Due on due Goal Lipid panel. Due on due Goal Depression screening. Due on due Goal Hep A. Due on du e Goal Tdap. Due on due Goal Diabetes screening. Due on F due Goal Lifestyle education regardin g diet completed Goal Depression screening. Due on due Goal Influenza Vaccine. Due on due Goal Diabetes screening. Due on due Goal Lipid panel. Due on due Goal PRAPARE ASSESSMENT. Due on due Goal Urinalysis. Due on due Goal Tdap. Due on due Goal Lifestyle education regardin g diet completed Goal PRAPARE ASSESSMENT. Due on due Goal Tdap. Due on due Goal Depression screening. Due on due Goal Influenza Vaccine. Due on due Goal Lipid panel. Due on due Goal Urinalysis. Due on due Goal Diabetes screening. Due on due Goal Urinalysis. Due on due Goal Influenza Vaccine. Due on due Goal Diabetes screening. Due on A due Goal Tdap. Due on due Goal PRAPARE ASSESSMENT. Due on A due Goal Lipid panel. Due on due Goal Depression screening. Due on due Goal Weight-reducing diet educati on completed Goal Lipid panel. Due on due Goal Influenza Vaccine. Due on due Goal PRAPARE ASSESSMENT. Due on A due Goal Tdap. Due on due Goal Diabetes screening. Due on A due Goal Depression screening. Due on due Goal Urinalysis. Due on due Goal Tobacco cessation counseling completed Goal Dietary management education , guidance, and counseling completed Goal Dietary management education , guidance, and counseling completed Goal Lipid panel. Due on due Goal Urinalysis. Due on due Goal Tdap. Due on due Goal Diabetes screening. Due on due Goal Influenza Vaccine. Due on due Goal Depression screening. Due on due Goal Dietary management education , guidance, and counseling completed Goal Depression screening. Due on due Goal Influenza Vaccine. Due on due Goal Tdap. Due on due Goal Diabetes screening. Due on due Goal Lifestyle education regardin g diet completed Goal Depression screening. Due on due Goal Tdap. Due on due Goal Diabetes screening. Due on due Goal Influenza Vaccine. Due on due Goal Diabetes screening. Due on due Goal Depression screening. Due on due Goal Influenza Vaccine. Due on due Goal Tdap. Due on due Goal Tdap. Due on due Goal Depression screening. Due on due Goal Diabetes screening. Due on due Goal Influenza Vaccine. Due on Oc due Goal Dietary management education , guidance, and counseling completed Goal Influenza Vaccine. Due on due Goal Tdap. Due on due Goal Depression screening. Due on due Goal Diabetes screening. Due on N due Goal Dietary management education , guidance, and counseling completed Goal Diabetes screening. Due on A due Goal Influenza Vaccine. Due on due Goal Tdap. Due on due Goal Depression screening. Due on due Goal Influenza Vaccine. Due on due Goal Depression screening. Due on due Goal Tdap. Due on due Goal Diabetes screening. Due on A due Goal Diabetes screening. Due on A due Goal Depression screening. Due on due Goal Tdap. Due on due Goal Influenza Vaccine. Due on due Goal Diabetes screening. Due on due Goal Depression screening. Due on due Goal Influenza Vaccine. Due on due Goal Tdap. Due on due Goal Dietary management education , guidance, and counseling completed Goal Depression screening. Due on due Goal Diabetes screening. Due on due Goal Tdap. Due on due Goal Influenza Vaccine. Due on due Goal Diabetes screening. Due on due Goal Tdap. Due on due Goal Depression screening. Due on due Goal Influenza Vaccine. Due on due Goal Depression screening. Due on due Goal Diabetes screening. Due on due Goal Tdap. Due on due Goal Influenza Vaccine. Due on due Goal Tdap. Due on due Goal Influenza Vaccine. Due on due Goal Diabetes screening. Due on due Goal Depression screening. Due on due Goal Depression screening. Due on due Goal Tdap. Due on due Goal Diabetes screening. Due on due Goal Influenza Vaccine. Due on due Goal Diabetes screening. Due on due Goal Depression screening. Due on due Goal Tdap. Due on due Goal Influenza Vaccine. Due on due Goal Lifestyle education regardin g diet completed Goal Depression screening. Due on due Goal Tdap. Due on due Goal Influenza Vaccine. Due on due Goal Diabetes screening. Due on due Goal Influenza Vaccine. Due on due Goal Depression screening. Due on due Goal Diabetes screening. Due on due Goal Tdap. Due on due Goal Tdap. Due on due Goal Diabetes screening. Due on due Goal Depression screening. Due on due Goal Influenza Vaccine. Due on due Goal Influenza Vaccine. Due on due Goal Tdap. Due on due Goal Depression screening. Due on due Goal Diabetes screening. Due on due Goal Influenza Vaccine. Due on due Goal Tdap. Due on due Goal Diabetes screening. Due on due Goal Depression screening. Due on due Goal Diabetes screening. Due on due Goal Influenza Vaccine. Due on due Goal Tdap. Due on due Goal Depression screening. Due on due Goal Lifestyle education regardin g diet completed Goal Tdap. Due on due Goal Diabetes screening. Due on N due Goal Depression screening. Due on due Goal Influenza Vaccine. Due on Oc due Goal Tdap. Due on due Goal Influenza Vaccine. Due on Oc due Goal Diabetes screening. Due on O due Goal Depression screening. Due on due Goal Tdap. Due on due Goal Diabetes screening. Due on S due Goal Depression screening. Due on due Goal Influenza Vaccine. Due on Oc due Goal Depression screening. Due on due Goal Influenza Vaccine. Due on Oc due Goal Diabetes screening. Due on S due Goal Tdap. Due on due Goal Diabetes screening. Due on S due Goal Depression screening. Due on due Goal Influenza Vaccine. Due on Oc due Goal Tdap. Due on due Goal Tobacco cessation counseling completed Goal Diabetes screening. Due on A due Goal Tdap. Due on due Goal Influenza Vaccine. Due on Oc due Goal Depression screening. Due on due Goal Influenza Vaccine. Due on Oc due Goal Depression screening. Due on due Goal Diabetes screening. Due on due Goal Tdap. Due on due Goal Diabetes screening. Due on due Goal Tdap. Due on due Goal Depression screening. Due on due Goal Influenza Vaccine. Due on due Goal Depression screening. Due on due Goal Tdap. Due on due Goal Diabetes screening. Due on due Goal Influenza Vaccine. Due on due Goal Depression screening. Due on due Goal Tdap. Due on due Goal Influenza Vaccine. Due on due Goal Diabetes screening. Due on due Goal Dietary management education , guidance, and counseling completed Goal Influenza Vaccine. Due on due Goal Diabetes screening. Due on due Goal Tdap. Due on due Goal Depression screening. Due on due Goal Diabetes screening. Due on A due Goal Influenza Vaccine. Due on due Goal Tdap. Due on due Goal Depression screening. Due on due Goal Tdap. Due on due Goal Depression screening. Due on due Goal Influenza Vaccine. Due on due Goal Diabetes screening. Due on due Goal Diabetes screening. Due on due Goal Tdap. Due on due Goal Influenza Vaccine. Due on Oc due Goal Depression screening. Due on due Goal Diabetes screening. Due on due Goal Depression screening. Due on due Goal Tdap. Due on due Goal Influenza Vaccine. Due on Oc due Goal Dietary management education , guidance, and counseling completed Goal RLP. Due on due Goal Depression screening. Due on due Goal Diabetes screening. Due on O due Goal Influenza Vaccine. Due on Oc due Goal ECG. Due on due Goal Tdap. Due on due Goal Dietary management education , guidance, and counseling completed Goal Tdap. Due on due Goal Influenza Vaccine. Due on Oc due Goal RLP. Due on due Goal Depression screening. Due on due Goal Diabetes screening. Due on A due Goal ECG. Due on due Goal Tdap. Due on due Goal Influenza Vaccine. Due on Oc due Goal Depression screening. Due on due Goal RLP. Due on due Goal ECG. Due on due Goal Diabetes screening. Due on due Goal Tobacco cessation counseling completed Goal Depression screening. Due on due Goal RLP. Due on due Goal ECG. Due on due Goal Tdap. Due on due Goal Influenza Vaccine. Due on Oc due Goal Diabetes screening. Due on M due Goal Tdap. Due on due Goal Influenza Vaccine. Due on Oc due Goal ECG. Due on due Goal Depression screening. Due on due Goal Diabetes screening. Due on due Goal RLP. Due on due Goal Diabetes screening. Due on due Goal Tdap. Due on due Goal ECG. Due on due Goal Depression screening. Due on due Goal Influenza Vaccine. Due on Oc due Goal RLP. Due on due Goal Urinalysis due Goal Depression screening. Due on due Goal Influenza Vaccine. Due on Oc due Goal RLP. Due on due Goal ECG. Due on due Goal Tdap. Due on due Goal Diabetes screening. Due on due Goal Dietary management education , guidance, and counseling completed Goal Influenza Vaccine. Due on Oc due Goal Diabetes screening. Due on due Goal RLP. Due on due Goal ECG. Due on due Goal Urinalysis. Due on due Goal Depression screening. Due on due Goal Tdap. Due on due Goal Urinalysis. Due on due Goal Tdap. Due on due Goal Influenza Vaccine. Due on due Goal ECG. Due on due Goal RLP. Due on due Goal Depression screening. Due on due Goal Diabetes screening. Due on due Goal Tdap. Due on due Goal Influenza Vaccine. Due on due Goal Depression screening. Due on due Goal RLP. Due on due Goal Diabetes screening. Due on due Goal Urinalysis. Due on due Goal ECG. Due on due Goal Depression screening. Due on due Goal Influenza Vaccine. Due on due Goal RLP. Due on due Goal ECG. Due on due Goal Urinalysis. Due on 18 due Goal Tdap. Due on due Goal Diabetes screening. Due on due Goal Depression screening. Due on due Goal Influenza Vaccine. Due on Oc due Goal Tdap. Due on due Goal Diabetes screening. Due on due Goal Urinalysis. Due on due Goal RLP. Due on due Goal ECG. Due on due Goal Influenza Vaccine. Due on Oc due Goal RLP. Due on due Goal Diabetes screening. Due on due Goal Tdap. Due on due Goal ECG. Due on due Goal Urinalysis. Due on due Goal Depression screening. Due on due Goal RLP. Due on due Goal Influenza Vaccine. Due on due Goal Urinalysis. Due on due Goal ECG. Due on due Goal Diabetes screening. Due on due Goal Tdap. Due on due Goal Depression screening. Due on due Goal Depression screening. Due on due Goal Diabetes screening. Due on due Goal RLP. Due on due Goal Tdap. Due on due Goal Urinalysis. Due on due Goal ECG. Due on due Goal Influenza Vaccine. Due on Oc due Goal Diabetes screening. Due on due Goal ECG. Due on due Goal Tdap. Due on due Goal Urinalysis. Due on due Goal RLP. Due on due Goal Depression screening. Due on due Goal Influenza Vaccine. Due on Oc due Goal Tdap. Due on due Goal Influenza Vaccine. Due on Oc due Goal RLP. Due on due Goal Urinalysis. Due on due Goal Depression screening. Due on due Goal Diabetes screening. Due on N due Goal ECG. Due on due Goal RLP. Due on due Goal Diabetes screening. Due on S due Goal ECG. Due on due Goal Tdap. Due on due Goal Depression screening. Due on due Goal Urinalysis. Due on due Goal Influenza Vaccine. Due on Oc due Goal Dietary management education , guidance, and counseling completed Goal Influenza Vaccine. Due on Oc due Goal Tdap. Due on due Goal RLP. Due on due Goal ECG. Due on due Goal Diabetes screening. Due on due Goal Urinalysis. Due on due Goal Diabetes screening. Due on due Goal Urinalysis. Due on due Goal Influenza Vaccine. Due on Oc due Goal Tdap. Due on due Goal ECG. Due on due Goal RLP. Due on due Goal Urinalysis. Due on due Goal Diabetes screening. Due on due Goal Influenza Vaccine. Due on Oc due Goal Tdap. Due on due Goal ECG. Due on due Goal RLP. Due on due Goal Dietary management education , guidance, and counseling completed Goal Tdap. Due on due Goal ECG. Due on due Goal Diabetes screening. Due on due Goal RLP. Due on due Goal Influenza Vaccine. Due on due Goal Urinalysis. Due on due Goal Urinalysis. Due on due Goal ECG. Due on due Goal Diabetes screening. Due on due Goal Tdap. Due on due Goal RLP. Due on due Goal Influenza Vaccine. Due on due Goal Dietary management education , guidance, and counseling completed Goal RLP. Due on due Goal Influenza Vaccine. Due on due Goal Tdap. Due on due Goal ECG. Due on due Goal Urinalysis. Due on due Goal Diabetes screening. Due on due Goal ECG. Due on due Goal Tdap. Due on due Goal RLP. Due on due Goal Influenza Vaccine. Due on Oc t due Goal Diabetes screening. Due on N due Goal Urinalysis. Due on 17 due Goal Diabetes screening. Due on O due Goal Urinalysis. Due on 17 due Goal ECG. Due on due Goal Influenza Vaccine. Due on Oc t due Goal RLP. Due on due Goal Tdap. Due on due Goal Influenza Vaccine. Due on Oc t due Goal Tdap. Due on due Goal Td vaccine. Due on 17 due Goal Tdap. Due on due Goal Pap/HPV testing. Due on due Goal Influenza Vaccine. Due on Oc due Goal Td vaccine. Due on 17 due Goal Influenza Vaccine. Due on Oc t due Goal Tdap. Due on due Goal Pap/HPV testing. Due on due Goal Td vaccine. Due on 17 due Goal Pap/HPV testing. Due on due Goal Tdap. Due on due Goal Influenza Vaccine. Due on Oc t due Goal Pap/HPV testing. Due on due Goal Tdap. Due on due Goal Td vaccine. Due on 16 due Goal Pap/HPV testing. Due on due Goal Tdap. Due on due Goal Td vaccine. Due on 16 due Goal Tdap. Due on due Goal Td vaccine. Due on 16 due Goal Pap/HPV testing. Due on due Goal Pap/HPV testing. Due on due Goal Tdap. Due on due Goal Td vaccine. Due on due Goal Tdap. Due on due Goal Pap/HPV testing. Due on due Goal Td vaccine. Due on 16 due Goal Pap/HPV testing. Due on due Goal Tdap. Due on due Goal Td vaccine. Due on 16 due Goal Pap/HPV testing. Due on due Goal Td vaccine. Due on 16 due Goal Tdap. Due on due Goal Pap/HPV testing. Due on due Goal Td vaccine. Due on 16 due Goal Tdap. Due on due Goal Td vaccine. Due on 15 due Goal Tdap. Due on due Goal Depression screening. Due on due Goal Pap/HPV testing. Due on due Goal Depression screening. Due on due Goal Td vaccine. Due on 15 due Goal Pap/HPV testing. Due on due Goal Tdap. Due on due Goal Influenza Vaccine. Due on due Referral Ordered: COLONOSCOPY AND BIOPSY [id number] Ordered: SCREENING COLONOSCOPY [id number] Ordered: MAMMOGRAM, SCREENING [id number] Ordered: Referrals: Gastroenterology. Evaluate and treat [id number] Ordered: Referrals: Cardiology. Evaluate and treat Appointment date/timeframe: 03/17/2019 [id number] Ordered: ELECTROCARDIOGRAM, COMPLETE [id number] Ordered: Dermatology (related to Skin rash) [id number] Ordered: Referrals: Orthopedic Surgery. Evaluate and treat Appointment date/timeframe: 03/23/2015 [id number] Ordered: X-Ray Exam Of Hip 2 Views [id number] Ordered: X-Ray Of Lumbosacral Spine Min 4 Views [id number], [id number] Minh Diez History Of Present Illness Encounter Date Complaint History Of Prese nt Illness Annual wellness Pt here today fo r annual wellness with labs. Keeps up with Cardiology. Pt states would like to get tested for Hepatitis and HIV. Pt states back in November had a vagsteam where she steamed her vaginal area and got a burn. States did f/u with Guest Services Coordinator but wants to be tested for Hepatitis and HIV. Pt states Gyno did dx with BV and was given ATB, but then did developed a yeast infection she thinks in her belly button and still is having issues. Voices no other issues or concerns at this time. Zaina. Above noted. Here for wellness visit with lab draw. Last seen approx 9 months ago in June. Had expressed wanting to wean off BP meds. Used to see cardiology; and had advised to f/u with them. Has seen them and adjusted medications. Seen them last week in follow up; BP was elevated and amlodipine was increased back to 10mg. States she was doing intermittent fasting for 4 months. Noticed dizzy spells and BP meds were reduced. Amlodipine changed to 5mg; but then increased back to 10mg last week. Lisinopril changed to 10mg from 20mg. Thinks metoprolol was decreased to 50mg. Patient states she decided to do a vaginal cleanse/steam on her birthday on [birth year]. Thinks the steam was on too high of setting and ended up causes some complications to vaginal area. F/U with Dr Bermudez who gave cream to apply to area. States she then developed BV and was prescribed antibiotics. Since February has had intermittent drainage form her naval area; suspects the cleanse might have caused an infection vs yeast infection. Will get odor to area at times with yellow/white drainage. Hx of anxiety, taking buspirone as needed; more 1 tab every once in a while. [facility] completed around same time as PAPColonoscopy completed August 2022; repeat in 7 yrsJMARIA VICTORIA Daly lab draw Labs obtained lucero ccessfully x1 attempt in RAC. Pt tolerated well, voices no complaints at this time. Zaina. HTN Pt here today fo r 3 month f/u HTN. Pt states seen Dr. Ceja cardiology on 06/23/23. States sees them again in 6 months. States changed meds around lisinopril to 10mg/ hctz 12.5, clonidine 0.1mg, and metoprolol succinate xl 100mg. Pt states will need refill on amlodipine and k+ tablet. Pt states recently went dairy free, meatless and no sugar. Voices no other issues or concerns at this time. Zaina.Above noted. Seen 3 months ago and had expressed wanting to wean off BP meds. Used to see cardiology; had advised to f/u with them. Had appt last week and had meds adjusted/reduced. Tolerating med changes well. BP well controlled. Reports feeling well. Did have few episodes of feeling heart racing which she did discuss with cardiology and relates it to anxiety. Takes buspirone as needed, which helps. Does not take daily; does not feel she needs to. MARIA VICTORIA Atkinson filling filling dental limited Dental limited, LL tooth pain Annual wellness Presents for [facility] wellness and lab draw. Requesting referral to cardiology to discuss getting off BP medication. Lab draw from right AC x 1 attempt, tolerated well, pressure dressing to area. Mary Carbajal noted. BP is well controlled. Seen [facility] in past; last note on chart was from 2019. Reported to be seeing them for dyspnea with exertion and had completed treadmill stress test. Was unable to achieve the 85% of maximal heartrate due to dyspnea and fatigue; so it was recommended to have a Lexiscan completed pending insurance approval. States she never got it completed due to insurance and is now interested in seeing them to complete the testing and would like to get off some of her BP med as mentioned above. Is not feeling shortness of breath with exertion like was feeling before. Did have some chest pain; but relates it to anxiety. Had prescribed buspirone to her; which states she is taking and it helps. No longer having any chest pain or anxiety. Has started working out over the past month. Started as 3x/day; goal is to go daily. States she is starting a new diet next week; which incorporates more vegetables and fruit.vision-glasses; last exam was this past yeardental- last cleaning was approx 1 year ago[facility] P[facility] Dr Bonilla- last year; around fall- August 2022; MARIA VICTORIA Neri 3 month HTN Pt here today fo r 3 month HTN check. Pt states does not need refill k+ , but wondering if could have buspirone increased. States does like the medication a lot, but just feels like she would be better with an increase. Voices no other issues or concerns at this time. Zaina. Above noted. Here for routine 3 mon f/u HTN and med refills. States she is feeling well. Had increased buspirone to 10mg daily and feels that has worked well for her. MARIA VICTORIA Atkinson DL f/u HTN Presents for f/u HTN and concerned that she thinks she is going through pre menopause. Mary Carbajal noted. Here for med refills and routine HTN f/u. Was seeing [facility] for dypnea and HTN. Medications being refilled by this office. States many years since seen by them and considering calling to make appt. Denies any dyspnea; states they wanted her to complete some testing that insurance would not approve. Notes reviewed from 2019. MARIA VICTORIA Atkinson blood pressure Presents for blo od pressure check. Denies any problems with bp lately. Has bp cuff from home with her, is going to check to make sure its accurate. Needs refills. Chidi Carbajal noted. Has 3 mon f/u appt next week, will renew BP meds today. States she monitors BP at home and they are WNL. Denies any headaches ro chest pain/palpitations. States she used to get headaches frequently, but after completing a colon cleanse; she has felt much better. Denies any further brain fog either.Did f/u with GI; has screening colonoscopy scheduled for July 29. MARIA VICTORIA Atkinson sick visit Presents for sic k visit. Pt had negative home and rapid COVID test. Patient has had sore throat and cough since Thursday. States cough is dry. has been gargling, using elderberry syrup which has brought up mucus that is yellow/green in color. Denies any fevers.Developed a rash on the abdomen and arm Thursday. States rashes are not seeping. 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 Symptoms onset was 1 week ago. Developed sore throat, congestion. Progressed to cough. Feels moved lower into chest area. Voice is hoarse No fever/chills. Denies abd pain, n/v/d. 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 Rash to lower abd and has 1 spot on left forearm. Was outside doing yardwork prior to rash appearing. Does itch. Demetrio IRENE Tyrone Tyrone Tyrone TYRONE Adult Prophy Adult Prophy Lab Draw Labs drawn x1 at tempt [facility]. Pt tolerated well. 2x2 and bandage applied.//Alfredo GALVAN. Annual Patient is here for annual wellness exam and fasting labs. States she has been experiencing frequent headaches, states they are persistent almost everyday which causes her to have brain fog. Patient states ibuprofen helps. Patient has been taking all medications as directed, states she monitors blood pressure daily at home, states blood pressure has been WNL. States she had a dizzy spell last week upon awakening in the morning, denies any other abnormal symptoms such as nosebleeds. Denies any other concerns. Struggles with anxiety, denies depression. Has been utilizing buspirone PRN for anxiety, as well as meditation. Denies smoking.//Alfredo GALVAN.Pap completed in September of [address] Bermudez.//Alfredo GALVAN.Mammogram: performed in 2021.//Alfredo GALVAN.Dental: established with VICTORIA.//Alfredo GALVAN.Vision: Dr. Gonsalez.//Alfredo GALVAN.Above noted. Had COVID in September 2021 and states headaches seemed to have developed since then. States noticing it more frequently. Pain develops to frontal area across top. Will last several days; Ibuprofen will usually help resolve them. Has noticed change in vision; states many years since had an exam and had glasses changed. Used to see [facility], but with insurance changing; she made appt with Dr Mead next month on 05/21. Was interested in returning to see cardiology; does not like being on so many BP medications. States she contacted [facility] who previously saw her; but they no longer accept her insurance. MARIA VICTORIA Atkinson 3 Month HTN 3 month F/U HTN. 139/72Wants to discuss medication, goal is to reduce amount BP medication.Has seen woman's in past year and had mammogram.Flu Shot: Refused//Magalie Carbajal noted. Here for routine 3 month HTN check. Patient was concerned regarding hearing other friends having kidney problems from being on medications. Had seen cardiology in past who prescribed current BP medication regimen to control her HTN; note reviewed from 2019. Patient has lost weight. States she eats 1 meal /day and decreased her intake. Drinks protein drinks in between and is exercising. Denies any current chest pain or dizziness. MARIA VICTORIA Atkinson prophy prophy [facility] Patient was quar antined for 10 days per ER doctor's recommendation. Now patient needs a physician to sign off on [facility] paperwork for July 13 through July 24. Patient had COVID. has discharge paperwork from the ER with her.-Joan Castillo RN f/u HTN Pt here for 3 mo nth f/u of HTN. Pt requesting refills on Metoprolol Tart, Lisinopril, Amlodipine Bes, Clonidine. States she has paperwork from insurance that she needs filled out from when she was off work d/t Covid. Pt went to [facility], where she was positive for Covid in June 2021. No other questions or concerns at this time. Amada Da Silva RN/ Celestine Portillo RNVenipuncture successful on first attempt in R AC, pt tolerated well. [place] noted. States BP is well controlled on medications and needs refills. Would like potassium level checked. Admits to not taking all the time like she should. Denies any headaches or any further chest pain/palpitations. On 07/13 went to ER with C/O chest pain. EKG completed and all normal. Had COVID testing completed and was found to be positive for COVID. Presents with paperwork that needs completed for her 10 days of missed work to get reimbursed. Was quarantined for the 10 days and returned to work with no further complications/concerns. Unable to complete paperwork today because it requires a physician signature. MARIA VICTORIA Atkinson Problem List Follow up for re imbursement form for insurance at work. Notes she was evalauted in [facility] in June of this year and diagnosed with COVID-19, patient missed 10 days of work at that time. Has returned to work since the 10 day quarantine with no further issues regarding the COVID-19 infections. Would like to have form completed to be reimbursed for days missed. No other questions or concerns today. RGonzales TOOL MACHINE SETUP OPERATOR Bp Med Refill BP 132/86Needs r efills on metoprolol, amlodipine, and lisinipril. clonidine. States she is going to gynocologist because her Mirena has been in for 8 years. //Magalie RNAmeliave noted. Here for 3 month f/u for HTN. States she had to call for appt because she noticed none was made at last office visit and she ran out of her clonidine approx 4 days ago. States she has not felt well the past few days and related it to her missing the medication. States she feels as if her heartrate increased a little and was having some chest achyness. States she does check her BP at home and normally runs around 110's/80's. 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 Denies any palpitations or shortness of breath. Denies any nausea or diaphoresis. Advised patient on need to go to ER for evaluation if chest pain returns/continues. Denies any distress at this time.This is first contact with patient; previously seen by provider who no longer works here. Will be establishing care with this provider now. States she has been on current BP regimen for many years and seemed to control her BP well. Labs reviewed with patient. Demetrio PACKING MACHINE PILOT CAN ROUTER prophy Adult 6MRC Lab Draw Lab Draw, left a ntecube, 1 attempt successful. Patient tolerated well.//Magalie RN f/u BP Presents for BP f/u and med refill. States she does not need Klor Con or Buspirone but needs refills on all the rest. Reports that ears are better from last visit but she has been getting headaches more frequently lately. Mary Winston RNNotes as above approved. Pt has lost over 30# on purpose watching her diet and exercising. Pt takes buspirone 5 mg 1/2 to 1 tablet BID prn. She notes that she has some sinus headaches and has used flonase she has at home on occasion. She denies fever or discolored sinus drainage. Pt denies fever, chest pain, or cough. Pt is doing well on her medications. Pt is taking all her medications and is stable on her HTN meds. KW b/p Patient here for b/p follow up. Patient has been monitoring it at home. Patient is doing well with depression. Patient did have a bad migraine on her birthday. Patient also had abd cramping/pain. Sergei Chacon.Noted above. Pt reports left ear fullness, no other complaints today. Tevin b/p check Pt here today fo r b/p check. Pt does check b/p at home and states that her numbers have been borderline. Pt had a dental appt this morning and states that her b/p was normal. Pt sees Dr. Barcenas in [place] [facility] and has mammograms completed at [facility]. No complaints at this time. Gasper Tillman, RNNoted above. Pt reports some newer neck pain, she feels that is related to her job. 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 She has recently got a massage and reports some improvement. No other concerns today. pedro prophy prophy lumbar spine lumbar spine Pt reports still having soreness in low back extending into right buttock and SI lumbar spine lumbar spine Pt reports don ess in low back this week. lab work Lab work obtaine d successfully in [place] after 1st attempt. No complications at this time. Mey Khanna needs lab results faxed to Dr. Buckley . er f/u Pt here for ER f ollow up. Pt states that she injured her left middle finger on 07/16/20 while using a leaf blower. Pt states she was evaluated at [facility] on 07/16/20 and dx with fx and puncture wound, states she was given and antibiotic along with a tetanus shot and told to f/u with pcp. Pt states she still has some tenderness in the L middle finger but is doing ok. 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 Pt denies any other issues or concerns. Adilene, RNNoted above. Patient reports no ongoing concerns related to recent ER visit. She has seen Dr. Buckley and he ordered labs. pedro Follow up BP/Anxiety Follow Bp . Haven't been checking it at home. Ran out of medications yesterday, only took Lisinopril today. Wanting 100 day supply of medications instead of 90 because she always seems to run out just before he follow-up appointment. Patient states medication is really helping with her mood.//Magalie RNNoted above. Patient frustrated with not losing weight recently and i have been trying . She is asking for Adipex. pedro lumbar spine lumbar spine Pt reports sligh t improvement since last visit. lumbar spine lumbar spine Pt reports don ess in low back this week. lumbar spine lumbar spine Pt reports don ess in low back this week. Prophy Prophy f/u anxiety Pt here today fo r f/u on anxiety. Pt states she is doing better. States she has been to acupuncture to help control her anxiety. Pt states she does have her own personal counselor that she is able to open up to. Would like to eventually stop the Buspar. Needs refill on Metoprolol. States her anxiety looks like racing thoughts and the medicine seems to help her focus. Pradeep,RNNoted above. Pt is feeling better related to her anxiety, I have a personal counselor and that is helping. No other concerns today. pedro Med Refill Needs all BP med s refilled and ibuprofen 600 mg. No complaints offered. Rebeca Persaud RNNoted above. Pt reports feeling more episodes of depression and anxiety. She feels overwhelmed with life. She is hesitant to start a daily medication. No other concerns today. pedro lumbar spine lumbar spine Pt reports gener al soreness in neck and back from working long hours lumbar spine lumbar spine Pt reports don ess in left low back and hip this week. med refill and bp check Pt here for med refill and BP check. Pt denies any other issues or concerns. Adilene, RNNoted above. Patient reports feeling more fatigued recently. She is trying to be proactive in her health. She also mentions considering weight loss surgery, asking for a referral to a provider at [facility]. She is unsure of name, but plans to call us back later today with his name. Patient follows with Dr. Bermudez for DONOR RECRUITER. No other concerns today. RAGHAVTevin cervical spine cervical spine Pt reports don ess in neck and low back this week. Prophy Prophy cervical spine cervical spine Pt reports don ess in neck and low back extending into hips this week. lumbar spine lumbar spine Pt reports don ess in low back and hips this week. med refill Pt here today fo r b/p check and med refill. Pt has not been checking b/p at home. Pt needs all of her b/p medications refilled. No complaints at this time. Gasper Tillman RNNoted above. Patient reports she saw cardiology, and had an exercise stress. Provider wanted to get a chemical stress because he could not get her heart rate high enough with exercise. She has to schedule a follow up with cardiology. She reports the episodes of chest pain have reduced. 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 No other concerns today. RAGHAVTevin lab work Lab work obtaine d successfully in R [place] after 1st attempt. No complications at this time. Gasper Tillman, RN other Telehealth visit . 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 She did wear gloves while cleaning. She spoke to Dr. Wasserman on 06/17/2019 and he educated her on possible transmission of virus and answered all her questions. 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 She is now worried because she is supposed to go back to work on 07/08/2019 to the [employer]. On 07/03/2019 she reports a tickle in her throat , almost couldn't swallow" and a sore throat and dry cough. She mentions having allergies and is unsure if symptoms are allergies or something else. We talked in length timeline of possible exposure. She denies any more recent exposures with anyone having symptoms. Will treat for allergies and re-evaluate early next week. Zoë sore throat Onset: 2 Days. T he severity of the problem is moderate. The problem has not changed. The symptoms are intermittent. Symptoms are not associated with exposure to strep, history of allergies, history of asthma, recent cold, recent travel and sick family member. Symptoms are not relieved by antihistamines, decongestants or OTC analgesics. Associated symptoms include nasal congestion, otalgia, postnasal drainage, rhinitis and ear pressure. Pertinent negatives include chills/rigors, cough, dyspnea, fatigue, fever, headache or sinus pressure. Covid 19 Pt called with celestine basilio about possible exposure to the novel coronavirus. 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 lumbar spine lumbar spine Pt reports don ess in low back from bending over giving massages. bp check Pt is here for m edication refill and BP check. NDiltsCMANoted above. Patient reports she has insurance now, is worried about the intermittent chest pain, heart palpitations she has been having. States pain starts middle of chest and radiates to left breast . Sees Dr. Bermudez for rn gyn, she is going to make appt with him to get order for mammogram. Patient has BP monitor at home, instructed her to log readings 2-3x weekly. Take BP if experiencing any symptoms. Pt denies shortness of breath or edema. Zoë med refill Pt here for B/P check and med refill. Pt needs refills of Metoprolol, Lisinopril-HCTZ, and Clonidine. Pt does not check her B/P at home. No complaints at this time. Gasper Tillman, RNNoted above. Patient reports intermittent heart palpitations. Zoë lumbar spine lumbar spine Pt reports low b ack pain, worse on right, after carrying message table. BP check Pt is here for a BP check and medication refill. Pt says she takes her Klor-Con she is not always compliant with so she does not need refills on that. Pt is doing well and enjoying her summer. NDiltsCMANoted above. Patient reports an episode of flu like illness in June. Denies any ongoing symptoms. No other concerns today. BertNP lumbar spine lumbar spine Pt reports don ess in neck and mid back. lumbar spine lumbar spine Pt reports don ess in low back and left knee. lumbar spine lumbar spine Pt reports feeli ng in soreness in low back along with left knee pain. BP check. labs Pt states that s he is here for BP check and would like some blood work drawn to check her A1C. Pt states that she has a BP cuff at home but hasn't been checking it at home for a while. Pt states that when she was seeing Dr. Rabago it was running good so she stopped checking it. Pt states that its been a couple of years for labs and just wants to make sure is okay. Pt reports that recently her cousin was Dx with breast cancer. Pt has a mammogram scheduled soon. HELENA Valenciat states that she is taking a daily herbal Moringa pill. Venipuncture Successful lab d raw of the right antecubital areaOsbaldo CPT lumbar spine lumbar spine Pt reports doing pretty good over last two weeks. lumbar spine lumbar spine Pt reports some soreness in low back but did ok over two weeks. lumbar spine lumbar spine Pt reports don ess in low back. lumbar spine lumbar spine Pt reports sore low back after massaging 12 people on Thursday. lumbar spine lumbar spine Pt reports jose nued improvement. lumbar spine lumbar spine Reports soreness in neck and low back this week. lumbar spine lumbar spine Pt reports jose nued improvement. lumbar spine lumbar spine Pt reports flare up of knee and back pain on Thursday after working in yard. Went to ER and was given steroid. Feels a little better today. lumbar spine lumbar spine Pt reports impro vement with low back over the weekend. Still having left knee pain. lumbar spine lumbar spine Pt reports flare up of neck and low back pain on left radiating down posterior thigh to knee. Sick visit Patient is here because she has not been feeling well since last Thursday. She has experienced chills, sweats, fever, nausea, vomiting, diarrhea, rattling cough and ear pain/ringing. Her newest symptom is stiffness of her neck. She has been treating it at home with OTC cough medicines, cough drops, cold and flu and Imodium. She has been drinking tea as well. It has been lingering for well over a week and she thought it was time to visit her pcp. Patient says she takes her BP medication every day. She needs refills on her Metoprolol, Lisinopril-HCTZ and Clonidine. EUGENIA Angel [facility] Pt reports don ess in low back. Was recently on driving for long hours on trip. Spine Care C/O neck and low back pain with onset 2 years ago and recently flared up from giving massagesAlso reports chronic plantar fasciitis in right foot.Sx are the result of regular ADL'S. No specific injury or trauma is noted. Pain is primarily at L3-L5 PVM on the Rt. & Lt. and extends to the SI joint, Rt. & Lt. Pain is local, dull, and with occasional radiation buttocks b/l.No loss of bowel or bladder function or retention. Symptoms present with a pain scale of 3 (VAS = 1-10). Pain interferes with regular ADL's and working. Increase in pain with movement/ROM and ADL'S. Some decrease in symptoms with rest. No change in the pain pattern from the onset of symptoms. Pain pattern is as prior times. Past lumbar x-rays negative. rash The patient pres ents for rash. Additional information: Patient states she had a rash on her right hand a left elbow for a week. Has used hydrocorisone cream and states it is better today, but she wants to know what exactly it was. She still has a little bit of the rash left. Ezequiel Mckenna RNHACKER- Reviewed above. Patient states rash seems to be improving. She uses a lot of creams/lotions at her job, so is unsure if she was exposed to something. 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 leg tightness Patient complain s of bilateral leg tightness. States when she is sitting for a while, her legs feel heavy . Denies any pain or burning. She reports some LE edema at times. She is asking to see a medical practice manager for this complaint. Discussed further with her that with these vague symptoms we will continue to monitor. Patient has thigh high compression stockings that she wore while in school last year . Instructed to wear those during the day, put them on in the morning and take off at night. Elevate legs when sitting. Limit sodium. She is on a potassium supplement, but mentions she does not take routinely. States she sometimes takes a magnesium supplement. mammogram last had in or June of this year- normal. 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 Ezequiel Mckenna RN RLP scanned into [facility] rt. headaches Pt c/o frequent headaches since about December. Pt states at least twice a week she is having the headaches. Talked to her Guest Services Coordinator who recommended she get blood work ordered from her family Dr. Pt is also concerned it could be from her mirena or from not taking her bp med briefly. Maulik sore throat Symptoms are ass ociated with exposure to strep. Associated symptoms include chills/rigors and cough. Additional information: left ear drainage. bp check Pt here today fo r bp check and states has been compliant with all meds. Maulik med refill needs all bp med s refilled. Maulik b/p follow up Patient states s he thinks her b/p has still been running high. Has c/o H/A, intermittent dizziness and feeling bad . Had hook and eye attacher appt 01/12 and bp was 155/93 and at home on 01/11 163/90. Patient states had one episode of her heart racing after she had been in class all day and hadn't eaten. -Ned MAI heel pain Hand Dominance: right. Additional information: Pt here with left heel pain that slowly started in March and is now becoming difficult to walk on. No injury. No visible abnormality. SERGEI Lloyd. B/P blood pressure i s slightly elevated today. She states she did take her medication today. filling filling filling continue with tr eatment prophy declined flu rey t right knee pain Onset: gradual. Duration: more than 1 hour. Location: right knee. Additional information: Patient states her right knee is in pain and swollen. She is going to see an Fine Chemicals Operator 11/08/15 for a second Cortisone injection. She did have an MRI done and will review that with Ortho. ENGRAVER PANTOGRAPH appointment moved up for 10/30/15 @ 8:45AM. -SERGEI WOODWARD. work physical Patient here for work physical, she does not have any paperwork with her. 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 Patient states she saw ortho today regarding her R knee. They are going to do an MRI to see if there is a tear in her meniscus. -Yamilka MAI ER Follow Patient here for ER follow up. Patients symptoms started thursday evening. Patient states thursday morning that symptoms of burning in chest started then left side of chest started to hurt and left arm went numb. Patient then went to ER via squad. Labs and EKG done. All came back normal. Patient given rx for prilosec just took to get fill so she has not started it yet. Patient states she is feeling ok today. No other issues at that this time. Sergei Chacon. prophy has flu shot xray results Pt here to revie w xray results that were completed 02/28/15. We have scheduled her an appointment with ENGRAVER PANTOGRAPH on 03/23/15 @ 9:30. SERGEI Lloyd knee pain Location: knee. Additional information: has pain behind left knee when trying to bend. pain Pt here for hip and back pain on her left side. Pain originated in December when playing with her son, she pulled something. Pain subsided after awile, but returned in late December when she was lifting heavy bags. SERGEI Lloyd est care Patient here to establish care and to get medication refills. 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 Patient states has a cough since thursday producing brown colored mucus. -Yamilka MAI Functional Status Date Functional Assessmen t No Information Instructions Date Instruction Additional Infor edd 1. F/U annually for wellness visit2. Labs completed today, will call with results; call if no communication within 1-2 weeks. Related to Annual physical exam 1. A1C checked today ; will call with results Related to Polyuria 1. Continue with hina atment plan 2. If you have any thoughts of harming yourself or others; go to the ER or: -Call 88 (available 15/09)-Crisis Text Line (available 15/09) text 4HOPE to [phone]-Kjcefnnev Hope Line (available 8a-Midnight) Call [phone] ([phone]. F/u annually Related to Depression with anxiety 1. Culture sent. Related to Umbi lical discharge 1. Reduce sodium and eat a Heart Healthy diet (less than 300mg cholesterol/day) or DASH diet2. Exercise moderate intensity at least 30 min/day for 5 days/week3. Check Blood pressure at home and keep a log4. Continue Medication as per cardiology5. No smoking/Avoid smoke exposure6. Limit alcohol intake7. Follow-up in 3 months Related to Essential hypertension 1. Lipid panel obtai segun today2. Make dietary changes3. Increase exercise4. Stop smoking/avoid smoke Related to Hyperlipidemia 1. Reduce sodium and eat a Heart Healthy diet (less than 300mg cholesterol/day) or DASH diet2. Exercise moderate intensity at least 30 min/day for 5 days/week3. Check Blood pressure at home and keep a log4. Continue Medication5. No smoking/Avoid smoke exposure6. Limit alcohol intake7. Follow-up with cardiology as scheduled Related to Essential hypertension 1. Labs completed to day, will call with results2. Continue with exercise Related to Fatigue, unspecified type 1. Continue with hina atment plan 2. If you have any thoughts of harming yourself or others; go to the ER or: -Call (available 15/09)-Crisis Text Line (available 15/09) text 4HOPE to [phone]-Xktssyoky Hope Line (available 8a-Midnight) Call [phone] ([phone]) Related to Anxiety 1. Reduce sodium and eat a Heart Healthy diet (less than 300mg cholesterol/day) or DASH diet2. Exercise moderate intensity at least 30 min/day for 5 days/week3. Check Blood pressure at home and keep a log4. Continue Medication5. No smoking/Avoid smoke exposure6. Limit alcohol intake7. Follow-up in 3 months Related to Essential hypertension 1. F/U annually for wellness visit2. Labs completed today, will call with results; call if no communication within 1-2 weeks. Related to Encounter for general adult medical examination without abnormal findings Giving encouragement to exercise Related to Body mass index [BMI] 38.0-38.9, adult Dietary management e ducation, guidance, and counseling Related to Body mass index [BMI] 38.0-38.9, adult 1. Continue with hina atment plan; increase buspirone to 10mg2. If you have any thoughts of harming yourself or others; go to the ER or: -Call (available 15/09)-Crisis Text Line (available 15/09) text 4HOPE to [phone]-Uakhntplz Hope Line (available 8a-Midnight) Call [phone] ([phone]) Related to Anxiety 1. Reduce sodium and eat a Heart Healthy diet (less than 300mg cholesterol/day) or DASH diet2. Exercise moderate intensity at least 30 min/day for 5 days/week3. Check Blood pressure at home and keep a log4. Continue Medication5. No smoking/Avoid smoke exposure6. Limit alcohol intake7. Follow-up in 3 months Related to Essential hypertension Giving encouragement to exercise Related to Body mass index [BMI] 37.0-37.9, adult Dietary management e ducation, guidance, and counseling Related to Body mass index [BMI] 37.0-37.9, adult 1. Reduce sodium and eat a Heart Healthy diet (less than 300mg cholesterol/day) or DASH diet2. Exercise moderate intensity at least 30 min/day for 5 days/week3. Check Blood pressure at home and keep a log4. Continue Medication5. No smoking/Avoid smoke exposure6. Limit alcohol intake7. Follow-up in 3 months Related to Essential hypertension Giving encouragement to exercise Related to Body mass index [BMI] 37.0-37.9, adult Dietary management e ducation, guidance, and counseling Related to Body mass index [BMI] 37.0-37.9, adult 1. Reduce sodium and eat a Heart Healthy diet (less than 300mg cholesterol/day) or DASH diet2. Exercise moderate intensity at least 30 min/day for 5 days/week3. Check Blood pressure at home and keep a log4. Continue Medication5. No smoking/Avoid smoke exposure6. Limit alcohol intake7. Follow-up in 3 months Related to Essential hypertension 1. Keep appt for colonoscopy Rel ated to Encounter for screening colonoscopy 1. Take antibiotic u ntil complete2. Increase oral fluids/water intake to thin secretions3. Take OTC Tylenol as needed4. Call if worsening symptoms5. Go to ER for any severe shortness of breath or fever Related to Acute bronchitis, unspecified organism Giving encouragement to exercise Related to Body mass index [BMI] 36.0-36.9, adult Weight-reducing diet education R elated to Body mass index [BMI] 36.0-36.9, adult 1. Obtain vision scr eening2. Use NSAIDs as needed for headache3. Go immediately to ER for any uncontrolled headache or worst headache of life Related to Frequent headaches 1. Continue with hina atment plan2. Call hotline number at if needed or go immediately to ER for any suicidal ideations3. Consider counseling services Related to Anxiety 1. Referral made. Ca ll if no communication from them in 1-2 weeks. Related to Encounter for screening colonoscopy 1. Reduce sodium and eat a Heart Healthy diet (less than 300mg cholesterol/day) or DASH diet2. Exercise moderate intensity at least 30 min/day for 5 days/week3. Check Blood pressure at home and keep a log4. Continue Medication5. No smoking/Avoid smoke exposure6. Limit alcohol intake7. Follow-up in 3 months Related to Essential hypertension 1. F/U annually for wellness visit2. Labs completed today, will call with results; call if no communication within 1-2 weeks. Related to Encntr for general adult medical exam w/o abnormal findings Giving encouragement to exercise Related to Body mass index [BMI] 35.0-35.9, adult Lifestyle education regarding di et Related to Body mass index [BMI] 35.0-35.9, adult 1. Reduce sodium and eat a Heart Healthy diet (less than 300mg cholesterol/day) or DASH diet2. Exercise moderate intensity at least 30 min/day for 5 days/week3. Check Blood pressure at home and keep a log4. Continue Medication5. No smoking/Avoid smoke exposure6. Limit alcohol intake7. Follow-up in 3 months Related to Essential hypertension Giving encouragement to exercise Related to Body mass index [BMI] 36.0-36.9, adult Lifestyle education regarding di et Related to Body mass index [BMI] 36.0-36.9, adult Weight-reducing diet education R elated to Body mass index [BMI] 37.0-37.9, adult Giving encouragement to exercise Related to Body mass index [BMI] 37.0-37.9, adult 1. Reduce sodium and eat a Heart Healthy diet (less than 300mg cholesterol/day) or DASH diet2. Exercise moderate intensity at least 30 min/day for 5 days/week3. Check Blood pressure at home and keep a log4. Continue Medication5. No smoking/Avoid smoke exposure6. Limit alcohol intake7. Follow-up in 3 months Related to Essential hypertension 1. Keep appt with Dr Hong, bring paperwork including ER visit with you. Related to History of COVID-19 Giving encouragement to exercise Related to Body mass index [BMI] 37.0-37.9, adult Dietary management e ducation, guidance, and counseling Related to Body mass index [BMI] 37.0-37.9, adult Giving encouragement to exercise Related to Body mass index [BMI] 37.0-37.9, adult Dietary management e ducation, guidance, and counseling Related to Body mass index [BMI] 37.0-37.9, adult 1. Records requested 2. Follow up as scheduled Related to History of COVID-19 Giving encouragement to exercise Related to Body mass index [BMI] 37.0-37.9, adult Dietary management e ducation, guidance, and counseling Related to Body mass index [BMI] 37.0-37.9, adult 1. GO TO ER FOR ANY CHEST PAIN2. Reduce sodium and eat a Heart Healthy diet (less than 300mg cholesterol/day) or DASH diet3. Exercise moderate intensity at least 30 min/day for 5 days/week4. Check Blood pressure at home and keep a log5. Continue Medication6. No smoking/Avoid smoke exposure7. Limit alcohol intake8. Follow-up in 3 months Related to Essential hypertension Giving encouragement to exercise Related to Body mass index [BMI] 37.0-37.9, adult Lifestyle education regarding di et Related to Body mass index [BMI] 37.0-37.9, adult Giving encouragement to exercise Related to Body mass index [BMI] 37.0-37.9, adult Dietary management e ducation, guidance, and counseling Related to Body mass index [BMI] 37.0-37.9, adult Giving encouragement to exercise Related to Body mass index [BMI] 38.0-38.9, adult Dietary management e ducation, guidance, and counseling Related to Body mass index [BMI] 38.0-38.9, adult Giving encouragement to exercise Related to Body mass index [BMI] 38.0-38.9, adult Dietary management e ducation, guidance, and counseling Related to Body mass index [BMI] 38.0-38.9, adult Giving encouragement to exercise Related to Body mass index [BMI] 38.0-38.9, adult Lifestyle education regarding di et Related to Body mass index [BMI] 38.0-38.9, adult Giving encouragement to exercise Related to Body mass index [BMI] 39.0-39.9, adult Lifestyle education regarding di et Related to Body mass index [BMI] 39.0-39.9, adult Giving encouragement to exercise Related to Body mass index (BMI) 40.0-44.9, adult Dietary management e ducation, guidance, and counseling Related to Body mass index (BMI) 40.0-44.9, adult Giving encouragement to exercise Related to Body mass index (BMI) 40.0-44.9, adult Dietary management e ducation, guidance, and counseling Related to Body mass index (BMI) 40.0-44.9, adult Giving encouragement to exercise Related to Body mass index (BMI) 39.0-39.9, adult Dietary management e ducation, guidance, and counseling Related to Body mass index (BMI) 39.0-39.9, adult Giving encouragement to exercise Related to Body mass index (BMI) 39.0-39.9, adult Dietary management e ducation, guidance, and counseling Related to Body mass index (BMI) 39.0-39.9, adult Giving encouragement to exercise Related to Body mass index (BMI) 39.0-39.9, adult Dietary management e ducation, guidance, and counseling Related to Body mass index (BMI) 39.0-39.9, adult Giving encouragement to exercise Related to Body mass index (BMI) 40.0-44.9, adult Dietary management e ducation, guidance, and counseling Related to Body mass index (BMI) 40.0-44.9, adult Giving encouragement to exercise Related to Body mass index (BMI) 40.0-44.9, adult Dietary management e ducation, guidance, and counseling Related to Body mass index (BMI) 40.0-44.9, adult Assessments Type Assessment Date No Information Goals Health Concern Goal Type Priority Status Date Hypertension Management: Patient needs education to manage hypertension. Patient will state factors necessary to manage hypertension. Patient Goal Continued Hypertension Management: Patient needs education to manage hypertension. Patient will state factors necessary to manage hypertension. Patient Goal Continued Patient Care Teams Name Effective Dates (start - stop) Status Members No Information
--- OUTSIDE RECORDS SUMMARY | 2025-01-16 13:00 | XMS_ITS | Encounter Summary ---
Author Organization [facility] Address [address] [facility] [place] [address] Care Team Providers Care Volunteer Patient Representative Name Role Phone Daija Daly NP Primary Care Provider [phone] Reason for Visit * ReasonCommentsGynecologic Exam Encounter Details DateTypeDepartmentCare Team (Latest Contact Info)Vjdzloqdmfd38/24/2025 1:00 PM ESTOffice Visit [facility] [address] [place] [phone] Angely Carvajal PA [address] [place], [facility] Well woman exam with routine gynecological exam; Encounter for screening mammogram for malignant neoplasm of breast; Encounter for osteoporosis screening in asymptomatic postmenopausal patient; Burning with urination; Urinary tract infection with hematuria, site unspecified; Screening examination for STI Social History Tobacco UseTypesPacks/DayYears UsedDateSmoking Tobacco: Every DayCigarettes CommentsUnknownSex and Gender InformationValueDate RecordedSex Assigned at BirthNot on fileLegal NpbVkjhhs28/15/2023 6:48 PM EDTGender IdentityNot on fileSexual OrientationNot on filedocumented as of this encounter Last Filed Vital Signs Vital SignReadingTime TakenCommentsBlood Jgujswhu003/7801/16/2025 1:23 PM EST Pulse--Temperature--Respiratory Rate--Oxygen Saturation--Inhaled Oxygen Concentration--Rqgcha90.2 kg (179 lb)01/16/2025 1:23 PM UTMKyxgbj610.2 cm (5' 7 )01/16/2025 1:23 PM ESTBody Mass Index28.04103/18/2024 1:23 PM ESTdocumented in this encounter Progress Notes * ESTHER Lyn - 01/16/2025 1:00 PM EST Reason for Appointment: Patient ID: Tamika Diez is a 49 y.o. female who presents for Gynecologic Exam Patient presents today for Annual Exam. MEDICATIONS Current Outpatient Medications Medication Instructions amLODIPine (Norvasc) 1 mg/mL solution Refills(s) 0, High blood pressure BUSPIRONE HCL PO Refills(s) 0, Anxiety cephalexin (KEFLEX) 500 mg, Oral, 2 times daily cloNIDine (Catapres) 0.1 MG tablet ibuprofen (Ibuprofen 100 Jesse Strength) 100 MG chewable tablet Refills(s) 0, Pain LISINOPRIL & DIET MANAGE PROD PO LISINOPRIL-HYDROCHLOROTHIAZIDE PO Refill(s) 0, High blood pressure metoprolol tartrate (Lopressor) 5 MG/5ML injection Potassium 99 MG tablet potassium chloride CR (Klor-Con) 8 MEQ ER tablet Refills(s) 0, Prophylaxis valACYclovir (VALTREX) 500 mg, Oral, Daily ALLERGIES Allergies Allergen Reactions Ketorolac Hallucinations Other Reaction(s): Hallucinating, Other (see comments), Unknown Other Reaction(s): Hallucinating Ketorolac Tromethamine Hallucinations PROBLEMS Active Ambulatory Problems Diagnosis Date Noted No Active Ambulatory Problems Resolved Ambulatory Problems Diagnosis Date Noted No Resolved Ambulatory Problems Past Medical History: Diagnosis Date Hypertension Screening mammogram for breast cancer 10/29/2021 HISTORY PAST MEDICAL HISTORY SOCIAL HISTORY Past Medical History: Diagnosis Date Hypertension Screening mammogram for breast cancer 10/29/2021 neg Social History Tobacco Use Smoking status: Every Day Types: Cigarettes Smokeless tobacco: Not on file Substance Use Topics Alcohol use: Not on file Drug use: Not on file FAMILY HISTORY No family history on file. SURGICAL HISTORY History reviewed. No pertinent surgical history. REVIEW OF SYSTEMS Review of Systems: Review of Systems Constitutional: Negative. HENT: Negative. Eyes: Negative. Respiratory: Negative. Cardiovascular: Negative. Gastrointestinal: Negative. Genitourinary: Negative. Musculoskeletal: Negative. Skin: Negative. Neurological: Negative. All other systems reviewed and are negative. Hematological: Negative. Endocrine: Negative. Allergic/Immunologic: Negative. OBJECTIVE Objective: Physical Exam Constitutional: Appearance: Normal appearance. She is well-developed. Genitourinary: Vulva normal. Right Adnexa: not tender and no mass present. Left Adnexa: not tender and no mass present. No cervical discharge. Breasts: Breasts are soft. Right: Normal. Left: Normal. HENT: Head: Normocephalic. Nose: Nose normal. Mouth/Throat: Mouth: Mucous membranes are moist. Cardiovascular: Rate and Rhythm: Normal rate and regular rhythm. Pulmonary: Effort: Pulmonary effort is normal. Breath sounds: Normal breath sounds. Abdominal: General: Bowel sounds are normal. There is no distension. Palpations: Abdomen is soft. Tenderness: There is no abdominal tenderness. There is no guarding or rebound. Musculoskeletal: General: No swelling. Normal range of motion. Cervical back: Normal range of motion. Right lower leg: No edema. Left lower leg: No edema. Neurological: General: No focal deficit present. Mental Status: She is alert and oriented to person, place, and time. Skin: General: Skin is warm and dry. Psychiatric: Mood and Affect: Mood normal. Behavior: Behavior normal. Vitals and nursing note reviewed. Exam conducted with a licensed certified orthotist present. Vitals: Estimated body mass index is 28.04 kg/m?? as calculated from the following: Height as of this encounter: 5' 7 . Weight as of this encounter: 179 lb. BP: 128/78 Patient's last menstrual period was 2024 (exact date). Assessment/Plan ICD-10-CM 1. Well woman exam with routine gynecological exam Z01.419 THIN PREP TIS PAP AND HR HPV DNA 2. Encounter for screening mammogram for malignant neoplasm of breast Z12.31 Bilateral screening mammogram Bilateral screening mammogram 3. Encounter for osteoporosis screening in asymptomatic postmenopausal patient Z13.820 DEXA bone density Z78.0 4. Burning with urination R30.0 Urine culture POCT urinalysis dipstick manually resulted cephalexin (Keflex) 500 MG capsule SURESWAB(R) ADVANCED VAGINITIS PLUS, TMA CHLAMYDIA TRACHOMATIS (GENITO/STI) Neisseria gonorrhea DNA probe, direct 5. Urinary tract infection with hematuria, site unspecified N39.0 R31.9 6. Screening examination for STI Z11.3 SURESWAB(R) ADVANCED VAGINITIS PLUS, TMA CHLAMYDIA TRACHOMATIS (GENITO/STI) Neisseria gonorrhea DNA probe, direct Assessment/Plan Annual: Patient presents today for an annual exam/STD check. Patient states she is doing well and has no complaints. Pap/Cx's was obtained without difficulty and patient given mammogram/Dexa scan orders to have scheduled/obtained. Orders Placed This Encounter Procedures Urine culture Bilateral screening mammogram DEXA bone density CHLAMYDIA TRACHOMATIS (GENITO/STI) Neisseria gonorrhea DNA probe, direct POCT urinalysis dipstick manually resulted Patient states she has minimal burning with urination and request UA culture to be sent. Vaginal cultures obtained as well, we did send in keflex tid for 7 days for dysuria and will add if something else needed. Follow Up: Patient is to return in one year for annual unless needed otherwise. Documented by Anat Cedeño MA on behalf of: ESTHER Lyn documented in this encounter Plan of Treatment DateTypeDepartmentCare Team (Latest Contact Info)Oxwpxcoabse19/30/2026 2:00 PM ESTProcedure Visit [facility] [address] [place] [phone] Angely Carvajal PA [address] [place] [address] NameTypePriorityAssociated DiagnosesOrder ScheduleBilateral screening mammogram ImagingRoutine Encounter for screening mammogram for malignant neoplasm of breast Expected: 01/16/2025 (Approximate), Expires: 03/18/2026DEXA bone densityImaging Routine Encounter for osteoporosis screening in asymptomatic postmenopausal patient Expected: 01/16/2025 (Approximate), Expires: 01/16/2026THIN PREP TIS PAP AND HR HPV DNAPathology and CytologyRoutine Well woman exam with routine gynecological exam Ordered: 01/16/2025Urine cultureMicrobiologyRoutine Burning with urination Ordered: 01/16/2025SURESWAB(R) ADVANCED VAGINITIS PLUS, TMAPathology and CytologyRoutine Burning with urination Screening examination for STI Ordered: 11/24/2025CHLAMYDIA TRACHOMATIS (GENITO/STI)LabRoutine Burning with urination Screening examination for STI Ordered: 01/16/2025Neisseria gonorrhea DNA probe, directLabRoutine Burning with urination Screening examination for STI Ordered: 01/16/2025documented as of this encounter Procedures Procedure NamePriorityDate/TimeAssociated DiagnosisCommentsPOCT URINALYSIS HAVDGGLZEymtegz27/24/2025 1:26 PM EST Burning with urination documented in this encounter Results * (ABNORMAL) POCT urinalysis dipstick manually resulted (01/16/2025 1:26 PM EST) ComponentValueRef RangeTest MethodAnalysis TimePerformed AtPathologist SignatureColor, UAYellowClarity, UAClearGlucose, UANegativeNegative - 2000(110) ++++ mg/dLBilirubin, UANegativeNegative - 4(70) +++ mg/dLKetones, UA NegativeNegative - 160(16) ++++ mg/dLSpec Grav, UA1.0151 - 1.03Blood, UA PositiveNegative - 50 Dimitri/mcLpH, UA6.05 - 9Protein, UANegativeNegative - 2000(20) ++++ mg/dLUrobilinogen, UA1.00.2 - 12 mg/dLLeukocytes, UANegative Negative - 500+++ Gayathri/mcLNitrite, UANegativeNegative - PositiveSpecimen (Source)Anatomical Location / LateralityCollection Method / VolumeCollection TimeReceived CnydXwhaw30/24/2025 1:26 PM EST Narrative Authorizing ProviderResult TypeResult StatusWestborough Behavioral Healthcare HospitalOINT OF CARE TEST ENTER/EDIT ORDERABLESFinal Result documented in this encounter Visit Diagnoses Diagnosis Well woman exam with routine gynecological exam Routine gynecological examination Encounter for screening mammogram for malignant neoplasm of breast Encounter for osteoporosis screening in asymptomatic postmenopausal patient Burning with urination Dysuria Urinary tract infection with hematuria, site unspecified Screening examination for STI documented in this encounter Care Teams Team MemberRelationshipSpecialtyStart DateEnd Daija Daly NP [address] [place] [phone] [facility] - General10/27/22documented as of this encounter
--- OUTSIDE RECORDS SUMMARY | 2025-01-16 20:51 | XMS_ITS | Clinical Summary ---
Author Organization [facility] Address [address] [place] [address] Phone Care Team Providers Care Air Drill Operator Name Role Phone Daija Daly Primary Care Provider [phone] Allergies Active AllergyReactionsCriticalityNoted DateCommentsKetorolacHallucinations 06/23/2023 Medications MedicationSigDispense QuantityRefillsLast FilledStart DateEnd DateStatus potassium chloride (Klor-Con) 20 mEq packet Take 20 mEq by mouth 4 times a day.Active busPIRone (Buspar) 5 mg tablet Take 1 tablet (5 mg) by mouth 2 times a day.Active cloNIDine (Catapres) 0.1 mg tablet Indications:Primary hypertensionTake 1 tablet (0.1 mg) by mouth once daily. 90 tablet 11:35 AM EST/ctive amLODIPine (Norvasc) 10 mg tablet Indications:Primary hypertensionTake 1 tablet (10 mg) by mouth once daily. 90 tablet 11:35 AM EST/ctive metoprolol succinate XL (Toprol XL) 100 mg 24 hr tablet Indications:Primary hypertensionTake 1 tablet (100 mg) by mouth once daily. Do not crush or chew. 90 tablet 11:35 AM EST/ctive lisinopriL-hydrochlorothiazide 10-12.5 mg tablet Indications:Primary hypertensionTake 1 tablet by mouth once daily. 90 tablet 11:35 AM ESTctive Active Problems ProblemNoted DateDiagnosed DateBMI 38.0-38.9,adult06/23/2023Former smoker 06/23/2023GERD (gastroesophageal reflux disease)04/02/2023History of tubal npiexpaa27/08/9866Dwacepwphudn78/08/2024Other chest pain04/02/2023 Family History Medical HistoryRelationNameCommentsGoutFatherHyperlipidemiaFatherHyperlipidemia MotherHypertensionMotherRelationNameStatusCommentsFatherMother Social History Tobacco UseTypesPacks/DayYears UsedDateSmoking Tobacco: FormerCigarettes Smokeless Tobacco: Never Tobacco Cessation:Counseling Given: Not Answered Alcohol UseStandard Drinks/WeekCommentsYes0 (1 standard drink = 0.6 oz pure alcohol)CommentsUnknownSex and Gender InformationValueDate RecordedSex Assigned at BirthNot on fileLegal RzbAuulrk93/26/2022 8:14 AM ESTGender Identity Not on fileSexual OrientationNot on file Last Filed Vital Signs Vital SignReadingTime TakenCommentsBlood Rclkpywx837/9002 3:54 PM EST Yqdcf595604/04/2024 2:59 PM ESTTemperature--Respiratory Rate--Oxygen Saturation-- Inhaled Oxygen Concentration--Dsitmd825 kg (247 lb)04/04/2024 2:59 PM ESTHeight 170.2 cm (5' 7 )04/04/2024 2:59 PM ESTBody Mass Index38.69004/04/2024 2:59 PM EST Plan of Treatment DateTypeDepartmentCare Team (Latest Contact Info)Jaovhrelhxe23/16/2026 2:30 PM ESTOffice Visit [facility] [address] [address] [place] [address] Tommie Ceja MD [address] [facility] [address] [place] [address] Health MaintenanceDue DateLast DoneCommentsCT Ngayjsyydhvi45/28/1974FIT-DNA (Cologuard)1973FIT1973HIV Umwbwnhqs85/28/1974Lipid Panel1973 Hgxmlgwwoztmp72/28/1974Hepatitis C Boroiqwtg85/28/1992HPV/Qfnjpf2912/20/1994 Hepatitis B Vaccines (2 of 3 - 19+ 3-dose series)302/Mammogram /, 12/16/2022neumococcal Vaccine (1 of 1 - PCV)12/21/2023 Zoster Vaccines (1 of 2)12/21/2023Influenza Vaccine (#1)/10/2013 COVID-19 Vaccine (3 - season)/, 09/18/2020Yearly Adult Kvwtrxjs40/05/986367/05/2023, 12/08/2022ervical Cancer Screening 12/27/2026Pap Smear/4DTaP/Tdap/Td Vaccines (2 - Td or Tdap) /4238Vhupbvgkscg24/21/203307/3Colorectal Cancer Screening 09/12/2032MMR VcrlldeaEdbsdcqay25/22/2023, 04/16/2022HIB VaccinesAged OutNo longer eligible based on patient's age to complete this topicHPV VaccinesAged OutNo longer eligible based on patient's age to complete this topicHepatitis A VaccinesAged OutNo longer eligible based on patient's age to complete this topic IPV VaccinesAged OutNo longer eligible based on patient's age to complete this topicMeningococcal VaccineAged OutNo longer eligible based on patient's age to complete this topicRotavirus VaccinesAged OutNo longer eligible based on patient's age to complete this topic Care Teams Team MemberRelationshipSpecialtyStart DateEnd Date Daija Daly [address] [place] [address] PCP - General06/23/23
--- OUTSIDE RECORDS SUMMARY | 2025-01-16 20:51 | XMS_ITS | CCD ---
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 receive a reminder letter prior to your next duedate. [facility] [phone] Health Anderson HospitalPostoperative Documentson [id number] Documents [id number]:127[facility] MemorialIntraOperative Documentson 27-77-9310QxozqIyubdgsrq Documents [id number]:[address] [place], [place] [address]Consenton 12-76-8231Lyzuowi [id number]:[address] [place], [place] [address]Discharge Instructionson 32-26-1560Qdleauore Instructions [id number]:127NormalFisher The [facility] Pratt HospitalMain OR Intraoperative Recordon [id number] OR Intraoperative Record IntraOp Document Type FT Summary Primary Physician: Janet LO MD Finalized Date/Time: 09/15/22 09:07:56 Pt. Name: JULISSA EVELYNLUIS ALBERTO Loya/Sex: 1975 Female Med Rec #: [id number] Physician: Janet LO MD Financial #: [id number] Pt. Type: O Room/Bed: Endo OP 09/23 Admit/Disch: 09/12/22 12:01:48 - 09/12/22 14:54:00 Institution: Case Times FT Entry 1 Patient Times In Room 09/12/22 14:04:00 Out Room 09/12/22 14:23:00 Procedure Times Start 09/12/22 14:11:00 Stop 09/12/22 14:20:00 Anesthesia Times Start 09/12/22 14:04:00 Stop 09/12/22 14:23:00 Time at [facility] 09/12/22 14:15:00 Last Modified By: Malick Gale RN 09/12/22 14:23:32 General Comments: 09/15/22 Chart opened to review and send charges LRoth CSFA Case Attendance FT Entry 1 Entry 2 Entry 3 Case Attendee Cristine Magdaleno BINDERY MACHINE SETTER, Klarissa LO MD, Janet Hope Role Performed Scrub - Primary Staff - Other Surgeon - Primary Time In 09/12/22 14:04:00 09/12/22 14:19:00 09/12/22 14:04:00 Time Out 09/12/22 14:23:00 09/12/22 14:23:00 09/12/22 14:23:00 Procedure COLONOSCOPY(.) COLONOSCOPY(.) COLONOSCOPY(.) Comments Last Modified By: Baljinder GALVAN, Malick Gale RN, Malick Miller RN 09/12/22 14:23:33 09/12/22 14:23:33 09/12/22 14:23:33 Entry 4 Entry 5 Entry 6 Case Attendee Baljinder GALVAN, Malick E DepMargareth santiago CRNA, Robert David Role Performed [employer] Travel Counselor - Primary CASING MAN Anesthesiologist Bundle Clerk Time In 09/12/22 14:04:00 09/12/22 14:04:00 09/12/22 14:11:00 Time Out 09/12/22 14:23:00 09/12/22 14:23:00 09/12/22 14:23:00 Procedure COLONOSCOPY(.) COLONOSCOPY(.) COLONOSCOPY(.) Comments Dr. Love supervising Dr. Love supervising case Last Modified By: Baljinder GALVAN, Malick Gale RN, Malick Miller RN 09/12/22 14:23:33 09/12/22 14:23:33 09/12/22 14:23:33 Perioperative Protocols FT Pre-Care Text: Implements protective measures prior to operative or invasive procedure, confirms identity before the operative or invasive procedure, verifies operative procedure, surgical site, and laterality Entry 1 Procedure(s) COLONOSCOPY(.) Patient Identity Birthday, ID Band Verified (select at Check, Patient least 2): Participation Consents / H and P Anesthesia Consent, Operative Site N/A Verified HandP, Surgery/Procedure Marking Verified Consent Surgical Site No Laterality Verified n/a Verified Procedure Verified Yes Correct Patient Yes Position Verified Availability Equipment, Medication Prep Dry n/a Verified (If Applicable) PreOp Antibiotic No Time Out Cristine Magdaleno SALAM Given Janet Tidwell MD, Baljinder GALVAN, Aura Valdez CRNA, Denise S. Time Out Complete 09/12/22 14:10:00 Outcomes Met? Yes Last Modified By: Malick Gale RN 09/12/22 14:27:48 Post-Care Text: The patient is free from signs and symptoms of injury caused by extraneous objects Allergy Information FT Pre-Care Text: Verifies allergies Entry 1 Allergies Reviewed? Yes Allergies Reviewed Self/Patient With Outcomes Met? Yes Last Modified By: Malick Gale RN 09/12/22 14:09:44 Post-Care Text: The patient received appropriate medication(s) safely administered during the perioperative period Surgical Procedures FT Entry 1 Procedure Description Procedure COLONOSCOPY Modifiers . Surgeon Description Colonoscopy with cecal polypectomy Primary Procedure Yes Primary Surgeon Janet LO MD Start 09/12/22 14:11:00 Stop 09/12/22 14:20:00 Anesthesia Type General Surgical Service Gastroenterology Wound Class 2 - Clean-Contaminated Last Modified By: Malick Gale RN 09/12/22 14:20:55 General Case Data FT Pre-Care Text: Classifies surgical wound, implements aseptic technique, initiates traffic control Entry 1 Case Information OR ENDO 1 FT Case Level Level 2 Wound Class 2 - Clean-Contaminated Specialty Gastroenterology ASA Class 2 Preop Diagnosis Colon cancer screening Postop Same As Preop No Postop Diagnosis Cecal polyp, Internal Outcomes Met? Yes hemorrhoids Last Modified By: Malick Gale RN 09/12/22 14:23:17 Post-Care Text: The patient is free from signs and symptoms of infection Skin Assessment (Pre Procedure) FT Pre-Care Text: Implements protective measures to prevent skin/ tissue injury due to thermal or mechanical sources Evaluates for signs and symptoms of physical injury to skin and tissue Entry 1 Skin Integrity Dry, Warm Skin Abnormality No Outcomes Met? Yes Last Modified By: Malick Gale RN 09/12/22 14:10:24 Post-Care Text: The patient is free from signs and symptoms of injury caused by extraneous objects Patient Positioning FT Pre-Care Text: Identifies physical alterations that require additional precautions for procedure-specific positioning, verifies presence of prosthetics or corrective devices, positions the patient, evaluates the patient for signs and symptoms of injury as a result (more content not included)...NormalChillicothe Va Medical CenterConsent for Treatmenton 03-46-2686Hwbchin for Treatment [id number]:127NormalChillicothe Va Medical CenterDischarge Instructionson 12-49-5845Pkurlvsea Instructions JULISSA BRADYCALIXTO :1975 Visit Date:09/12/2022 Inpatient Discharge Instructions Your Care Team Admitting Physician - Janet LO MD Referring Physician - Janet LO MD Reason for Your Visit SCREENING Tests Performed Pathology Tissue Exam -- Results Pending -- Please visit your patient portal for your results or contact your primary care physician. This Is Your Medications List amlodipine busPIRone clonidine hydrochlorothiazide-lisinopril ibuprofen metoprolol potassium chloride (Klor-Con) Procedure History Colonoscopy (09/12/2022). What to do next Instructions From Your Doctor Event Name Event Result Pharmacy Information [place] New Follow Up Appointments after Discharge Follow Up with FABIOLA MELGOZA, ANIKET Gonzales, YOSEPH When: Comments: Call for any problems. Office to call for follow up appt. Where: [address] [place] [address] Business (1) Medications What When Instructions Next Dose Unchanged amlodipine Unchanged busPIRone Unchanged clonidine Unchanged hydrochlorothiazide-lisinopril Unchanged ibuprofen Unchanged metoprolol Unchanged potassium chloride (Klor-Con) Test Results No qualifying data available. Allergies ketorolac (Unknown, Hallucinating) Problems Ongoing - Any problem that you are currently receiving treatment for. Screen for colon cancer Education Materials Colonoscopy Care After Surgery Please read the instructions outlined below and refer to this sheet in the next few weeks. These discharge instructions provide you with general information on caring for yourself after you leave thespital. Your doctor may also give you specific instructions. While your treatment has been planned according to the most current medical practices available, unavoidable complications occasionally occur. If you have any problems or questions after discharge, please call your doctor. ACTIVITY You may resume your regular activity, but move at a slower pace for the next 24 hours. Take frequent rest periods for the next 24 hours. Walking will help get rid of the air and reduce the bloated feeling in your abdomen (belly). No driving for 24 hours (because of the anesthesia (medicine) used during the test). You may shower. Do not sign any important legal documents or operate any machinery for 24 hours (because of the anesthesia used during the test). NUTRITION Drink plenty of fluids. You may resume your normal diet as instructed by your doctor. Begin with a light meal and progress to your normal diet. Heavy or fried foods are harder to digestand may make you feel nauseated (sick to your stomach). Avoid alcoholic beverages for 24 hours or as instructed. MEDICATIONS You may resume your normal medications unless your doctor tells you otherwise. WHAT YOU CAN EXPECT TODAY Some feelings of bloating in the abdomen. Passage of more gas than usual. Spotting of blood in your stool or on the toilet paper. FOLLOW-UP Your doctor will discuss the results of your test with you. SEEK IMMEDIATE MEDICAL ATTENTION IF: There is more than a spotting of blood in your stool. There is abdominal distention (your abdomen is swollen). There is vomiting. You have a temperature over 101.5 F. There is abdominal pain or discomfort that is severe or gets worse throughout the day. Hemorrhoids Hemorrhoids are swollen veins that may develop: ? In the butt (rectum). These are called internal hemorrhoids. ? Around the opening of the butt (anus). These are called external hemorrhoids. Hemorrhoids can cause pain, itching, or bleeding. Most of the time, they do not cause serious problems. They usually get better with diet changes, lifestyle changes, and other home treatments. What are the causes? This condition may be caused by: ? Having trouble pooping (constipation). ? Pushing hard (straining) to poop. ? Watery poop (diarrhea). ? . ? Being very overweight (obese). ? Sitting for long periods of time. ? Heavy lifting or other activity that causes you to strain. ? Anal sex. ? Riding a bike for a long period of time. What are the signs or symptoms? Symptoms of this condition include: ? Pain. ? Itching or soreness in the butt. ? Bleeding from the butt. ? Leaking poop. ? Swelling in the area. ? One or more lumps around the opening of your butt. How is this diagnosed? A doctor can often diagnose this condition by looking at the affected area. The doctor may also: ? Do an exam that involves feeling the area with a gloved hand (digital rectal exam). ? Examine the area inside your butt using a small tube (anoscope). ? Order blood tests. This may be done if you have lost a lot of blood. ? Have you get a test that involves looking inside the colon usi (more content not included)...[facility] MemorialComment on above:Result Comment: Electronically Signed By: Modesto GALVAN, Qing Rodríguez\.pastor\Date and Time Signed: 09/12/22 14:29 EDTEndoscopic Procedure Report - Otheron [id number] Procedure Report - OtherPatient: TAMIKA DIEZ Age: 46 years Sex: Female : 1975 Associated Diagnoses: None Author: Janet LO MD Pre-Procedure Procedure Date 09/12/2022 14:31:00 . Procedure Type: Colonoscopy with removal of tumor(s), polyp(s), or other lesion(s) by cold snare technique. Procedure provider Performed by Janet Lo MD. Current history and physical Documented on chart. Colorectal neoplasm risk assessment Average risk. Informed Consent After discussing the rationale, risks and benefits, and alternatives to this procedure, the patient provided signed consent for the procedure. Pre-procedure diagnosis: Age 50 years or over. Medications Anticoagulant/antiplatelet None. ASA Classification: Class II. . Procedure The procedure was performed in the hospital. Rectal exam was performed and was normal with no masses palpated. The patient was positioned in the left lateral decubitus position and a digital rectal exam was performed.. Endoscope type used was an adult-size. The endoscope was lubricated then introduced through the anus. The scope was advanced to the cecum verified by photographing the appendiceal orifice, verified by photographing the ileocecal valve, verified by transillumination. No difficulties encountered during the procedure. The bowel preparation quality was adequate (see polyps greater than or equal to 6 millimeters). The patient tolerated the procedure well. Findings 1. Sessile polyp, 2 mm, in the cecum, removed completely with cold snare 2. Moderate nonbleeding internal hemorrhoids Images Procedure images: [id number].jpg . Post-Procedure Complications: none. Estimated blood loss: none. Specimens: sent to pathology. Devices/ implants: none left in place. Impression and Plan 1. Sessile polyp, 2 mm, in the cecum, removed completely with cold snare 2. Moderate nonbleeding internal hemorrhoids Recommendations: Repeat colonoscopy:: In 10 years, Pending pathology results. Follow-up:: Clinic follow-up in 1-2 weeks. Diet:: Resume previous diet. Medication resumption:: Continue current medications. Return to activities:: After 24 hours.[facility] MemorialComment on above:Result Comment: Electronically Signed By: Janet LO MD\.br\Date and Time Signed: 09/12/22 14:32 EDTOther Comment: Missing Attachment - attachment storage system not supported [id number] Can be viewed in source systemMissing Attachment - attachment storage system not supported [id number] Can be viewed in source systemMain OR PACU I Recordon 10-12-8470Tecu OR PACU I RecordPACU Phase I Document Type FT Summary Primary Physician: Janet LO MD Finalized Date/Time: 09/12/22 15:02:01 Pt. Name: TAMIKA DIEZ/Sex: 1975 Female Med Rec #: [id number] Physician: Janet LO MD Financial #: [id number] Pt. Type: O Room/Bed: Endo OP 09/23 Admit/Disch: 09/12/22 12:01:48 - Institution: Case Times PACU I FT Pre-Care Text: Identifies barriers to communication and implements measures to provide psychological support Develops individualized plan of care, and ensures continuity of care Maintains patient's dignity and privacy, and maintains patient confidentiality Identifies and reports philosophical, cultural, and spiritual beliefs and values Identifies individual values and wishes concerning care Implements aseptic technique, and administers prescribed antibiotic therapy and immunizing agents as ordered Evaluates postoperative tissue perfusion Implements thermoregulation measures, and monitors body temperature Evaluates postoperative respiratory status Evaluates postoperative cardiac status Evaluates postoperative neurological status Assesses pain control, collaborated in initiating patient-controlled analgesia and implements alternative methods of pain control Verifies allergies, administers prescribed medications and solutions, evaluates response to medications Entry 1 In PACU I 09/12/22 14:24:00 Discharge from PACU 09/12/22 14:54:00 I Outcomes Met? Yes Last Modified By: Modesto GALVAN, Qing Rodríguez 09/12/22 15:01:47 Post-Care Text: The patient demonstrates knowledge of the expected response to the operative or invasive procedure The patient's care is consistent with the individualized perioperative plan of care The patient's rightto privacy is maintained The patient's value system, lifestyle, ethnicity, and culture are considered, respected, and incorporated into the perioperative plan of care The patient participates in decisions affecting his or her perioperative plan of care The patient is free from signs and symptoms of infection The patient has wound/tissue perfusion consistent with or improved from baseline levels established preoperatively The patient is at or returning to normothermia at the conclusion of the immediate postoperative period The patient's respiratory function is consistent with or improved from baseline levels established preoperativelyThe patient's cardiovascular status is consistent with or improved from baseline levels established preoperatively The patient's cardiovascular status is consistent with or improved from baseline levels established preoperatively The patient demonstrates and/or reports adequate pain control throughout the perioperative period The patient received appropriate medication(s), safely administered during the perioperativeperiod Acuity Level PACU I FT Entry 1 Start Time 09/12/22 14:24:00 Stop Time 09/12/22 14:54:00 Acuity Level Acuity Level I Last Modified By: Qing Salvador RN 09/12/22 15:01:58 Finalized By: Qing Salvador RN Document Signatures Signed By: Qing Salvador RN 09/12/22 15:02[facility] MemorialMain OR Preoperative Recordon [id number] OR Preoperative RecordHolding Area Document Type FT Summary Primary Physician: Janet LO MD Finalized Date/Time: 09/12/22 12:37:21 Pt. Name: TAMIKA DIEZ/Sex: 1975 Female Med Rec #: [id number] Physician: Janet LO MD Financial #: [id number] Pt. Type: O Room/Bed: Endo OP 09/23 Admit/Disch: 09/12/22 12:01:48 - Institution: Case Times Holding FT Pre-Care Text: Verifies consent for planned procedure, identifies individual values and wishes concerning care, includes family members in perioperative teaching Secures patient's records' belongings, and valuables, maintains patient's dignity and privacy, and maintains patient confidentiality Entry 1 In Holding 09/12/22 12:25:00 Outcomes Met? Yes Last Modified By: Bhupendra AGLVAN, Jeannine Farley 09/12/22 12:35:49 Post-Care Text: The patient participates in decisions affecting his or her perioperative plan of care The patient'sright to privacy is maintained Surgery Checklist FT Entry 1 Patient Birthday, ID Band Procedure History and Physical, Identification: Check, Patient Verification: Surgical Consent, With Participation Patient NPO after Midnight: Yes Date/Time: 09/12/22 11:00:00 Personal Items: Glasses, Jewelry Personal Items glasses, earrings, nose Comment: ring, clothes, shoes Limitations: n/a Complaints of Pain: No Pain Comment: denies Operative Site n/a Marking: Marked By: n/a Availability Equipment Verified: Does Patient Smoke No Patient states Yes Comment - Adult Christina- mother postop adult Supervision supervision available Case Cancelled in No Holding Area see comments below for reason Last Modified By: Jeannine Huizar RN 09/12/22 12:37:18 General Comments: Pt finished colon prep at 1100, states stool is clear liquid yellow /MDRN Finalized By: Jeannine Huizar RN Document Signatures Signed By: Jeannine Huizar RN 09/12/22 12:37NoCity Hospitalitor Recordon [id number] Record [id number]:127[facility] [id number]#1.00CD:127[facility] HospitalPatient Education - Texton 92-83-7065Yiodomd Education - TextColonoscopy Care After Surgery Please read the instructions outlined below and refer to this sheet in the next few weeks. These discharge instructions provide you with general information on caring for [facility] Your doctor may also give you specific instructions. While your treatment has been planned according to the most current medical practices available, unavoidable complications occasionally occur. If you have any problems or questions after discharge, please call your doctor. ACTIVITY You may resume your regular activity, but move at a slower pace for the next 24 hours. Take frequent rest periods for the next 24 hours. Walking will help get rid of the air and reduce the bloated feeling in your abdomen (belly). No driving for 24 hours (because of the anesthesia (medicine) used during the test). You may shower. Do not sign any important legal documents or operate any machinery for 24 hours (because of the anesthesia used during the test). NUTRITION Drink plenty of fluids. You may resume your normal diet as instructed by your doctor. Begin with a light meal and progress to your normal diet. Heavy or fried foods are harder to digestand may make you feel nauseated (sick to your stomach). Avoid alcoholic beverages for 24 hours or as instructed. MEDICATIONS You may resume your normal medications unless your doctor tells you otherwise. WHAT YOU CAN EXPECT TODAY Some feelings of bloating in the abdomen. Passage of more gas than usual. Spotting of blood in your stool or on the toilet paper. FOLLOW-UP Your doctor will discuss the results of your test with you. SEEK IMMEDIATE MEDICAL ATTENTION IF: There is more than a spotting of blood in your stool. There is abdominal distention (your abdomen is swollen). There is vomiting. You have a temperature over 101.5 F. There is abdominal pain or discomfort that is severe or gets worse throughout the day. Gastroenterology Hemorrhoids Hemorrhoids are swollen veins that may develop: ? In the butt (rectum). These are called internal hemorrhoids. ? Around the opening of the butt (anus). These are called external hemorrhoids. Hemorrhoids can cause pain, itching, or bleeding. Most of the time, they do not cause serious problems. They usually get better with diet changes, lifestyle changes, and other home treatments. What are the causes? This condition may be caused by: ? Having trouble pooping (constipation). ? Pushing hard (straining) to poop. ? Watery poop (diarrhea). ? . ? Being very overweight (obese). ? Sitting for long periods of time. ? Heavy lifting or other activity that causes you to strain. ? Anal sex. ? Riding a bike for a long period of time. What are the signs or symptoms? Symptoms of this condition include: ? Pain. ? Itching or soreness in the butt. ? Bleeding from the butt. ? Leaking poop. ? Swelling in the area. ? One or more lumps around the opening of your butt. How is this diagnosed? A doctor can often diagnose this condition by looking at the affected area. The doctor may also: ? Do an exam that involves feeling the area with a gloved hand (digital rectal exam). ? Examine the area inside your butt using a small tube (anoscope). ? Order blood tests. This may be done if you have lost a lot of blood. ? Have you get a test that involves looking inside the colon using a flexible tube with a camera onthe end (sigmoidoscopy or colonoscopy). How is this treated? This condition can usually be treated at home. Your doctor may tell you to change what you eat, make lifestyle changes, or try home treatments. If these do not help, procedures can be done to remove the hemorrhoids or make them smaller. These may involve: ? Placing rubber bands at the base of the hemorrhoids to cut off their blood supply. ? Injecting medicine into the hemorrhoids to shrink them. ? Shining a type of light energy onto the hemorrhoids to cause them to fall off. ? Doing surgery to remove the hemorrhoids or cut off their blood supply. Follow these instructions at home: Eating and drinking ? Eat foods that have a lot of fiber in them. These include whole grains, beans, nuts, fruits, and vegetables. ? Ask your doctor about taking products that have added fiber (fibersupplements). ? Reduce the amount of fat in your diet. You can do this by: ? Eating low-fat dairy products. ? Eating less red meat. ? Avoiding processed foods. ? Drink enough fluid to keep your pee (urine) pale yellow. Managing pain and swelling ? Take a warm-water bath (sitz bath) for 20 minutes to ease pain. Do this 3?4 times a day. You may do this in a bathtub or using a portable sitz bath that fits over the toilet. ? If told, put ice on the painful area. It may be helpful to use ice between your warm baths. ? Put ice in a plas (more content not included)...[facility] MemorialProgress Note-Physicianon 32-20-5900Wfkmdvln Note-PhysicianPatient: TAMIKA DIEZ Age: 46 years Sex: Female : 1975 Associated Diagnoses: None Author: Akash Love Jr, DO Postoperative Information Postoperative disposition: Postoperative disposition: To PACU. Optimetrix number: Optimetrix number [id number]. Anesthetic utilized: General. Health Status Allergies: Allergic Reactions (Selected) Severity Not Documented Ketorolac- Unknown and hallucinating. Physical Examination Vital Signs 09/12/2022 14:30 EDT Heart Rate Monitored 61 bpm Respiratory Rate Monitored 20 br/min Systolic Blood Pressure 123 mmHg Diastolic Blood Pressure 74 mmHg SpO2 99 % 09/12/2022 14:24 EDT Temperature Temporal Artery 36.5 DegC Heart Rate Monitored 64 bpm Respiratory Rate Monitored 18 br/min Systolic Blood Pressure 128 mmHg Diastolic Blood Pressure 67 mmHg SpO2 99 % Pain Assessment: Controlled. General: Awake, Alert, Appropriate. Respiratory: Adequate air exchange. Cardiovascular: Stable, Normal peripheral perfusion. Neurological: Normal sensory function, Normal motor function. Assessment Anesthetic outcome No anesthetic complications noted. Adequate pain relief. able to void without difficulty, able to ambulate with assist, tolerating PO intake, no N/V. Review / Management Condition: Stable. Plan Transfer/Discharge: Transfer/Discharge Discharge when meets criteria ( To home ).[facility] MemorialComment on above:Result Comment: Electronically Signed By: Akash Love Jr, DO\.br\Date and Time Signed: 09/12/22 15:14 EDTProgress Note-PhysicianPatient: TAMIKA DIEZ Age: 46 years Sex: Female : 1975 Associated Diagnoses: None Author: Akash Love Jr, DO Preoperative Information Anesthesia Preop Info: Time patient last ate or drank 09/12/2022 00:00:00. Anesthesia history: Patient history: None. Family history+: None. Informed consent: Signed by patient. Re-evaluation prior to induction: Initial evaluation reviewed: No significant change. Review of Systems Eye: Negative except as documented in history of present illness. Ear/Nose/Mouth/Throat: Negative except as documented in history of present illness. Respiratory: Negative except as documented in history of present illness. Cardiovascular: Negative except as documented in history of present illness. Musculoskeletal: Negative except as documented in history of present illness. Neurologic: Negative except as documented in history of present illness. Health Status Allergies: Allergic Reactions (Selected) Severity Not Documented Ketorolac- Unknown and hallucinating. Problem list: All Problems Screen for colon cancer / SNOMED CT 939647437 / Confirmed Histories Procedure history: No active procedure history items have been selected or recorded. Social History Social & Psychosocial Habits Tobacco 05/08/2022 Tobacco Use: Never (less than 100 in l Smokeless tobacco use: Never . Physical Examination Airway: Mallampati classification: II (soft palate, fauces, uvula visible). Respiratory: adequate air exchange. Cardiovascular: Regular rhythm. Plan [place] [employer] Anesthesiologists (ASA) physical status classification: Class II. Anesthetic Preoperative Plan: Anesthesia General.[facility] MemorialComment on above:Result Comment: Electronically Signed By: Akash Love Jr, DO\.br\Date and Time Signed: 09/12/22 15:12 EDTProgress Note-Physicianon [id number] Note-PhysicianPatient: TAMIKA DIEZ Age: 46 years Sex: Female : 1975 Associated Diagnoses: None Author: Akash Love Jr, DO Preoperative Information Anesthesia Preop Info: Time patient last ate or drank 07/28/2022 00:00:00. Anesthesia history: Patient history: None. Family history+: None. Informed consent: Signed by patient. Re-evaluation prior to induction: Initial evaluation reviewed: No significant change. Review of Systems Eye: Negative except as documented in history of present illness. Ear/Nose/Mouth/Throat: Negative except as documented in history of present illness. Respiratory: Negative except as documented in history of present illness. Cardiovascular: Negative except as documented in history of present illness. Musculoskeletal: Negative except as documented in history of present illness. Neurologic: Negative except as documented in history of present illness. Health Status Allergies: Allergic Reactions (Selected) Severity Not Documented Ketorolac- Unknown and hallucinating. Problem list: All Problems Screen for colon cancer / SNOMED CT [id number] / Confirmed Histories Procedure history: No active procedure history items have been selected or recorded. Social History Social & Psychosocial Habits Tobacco 05/08/2022 Tobacco Use: Never (less than 100 in l Smokeless tobacco use: Never . Physical Examination Airway: Mallampati classification: II (soft palate, fauces, uvula visible). Respiratory: adequate air exchange. Cardiovascular: Regular rhythm. Plan [place] [employer] Anesthesiologists (ASA) physical status classification: Class II. Anesthetic Preoperative Plan: Anesthesia General.[facility] MemorialComment on above:Result Comment: Electronically Signed By: Akash Love Jr, DO AConsent for Procedure/Surgeryon [id number] for Procedure/Surgery [id number]:127NoMagy The [facility] Pr[facility] HospitalAmbulatory Visit Summaryon [id number] Visit Summary TAMIKA DIEZ :1975 Visit Date:05/08/2022 Ambulatory Visit Instructions Your Diagnosis Screen for colon cancer Your Care Team Attending Physician - Kathy Goel CNP Primary Care Physician - DAIJA HILL This Is Your Medications List polyethylene glycol 3350 with electrolytes (Plenvu oral powder for reconstitution) Contact prescribing physician if questions or concerns amlodipine busPIRone clonidine hydrochlorothiazide-lisinopril ibuprofen metoprolol potassium chloride (Klor-Con) Discharge Vitals Temperature (Temporal Artery) 36.5 ?C Heart Rate (Peripheral) 59 Blood Pressure 119/81 Height 171.4 cm Height 67 in Weight 110.4 kg Weight 242.88 lb BMI 37.58 What to do next You Need to Schedule the Following Appointments Follow Up with Kathy Goel CNP When: Within 1 to 2 weeks Comments: Following colonoscopy. Where: Medications What How Much When Instructions New polyethylene glycol 3350 with electrolytes (Plenvu oral powder for reconstitution) See instructions Prior to colonoscopy. Pickup at [facility] Unchanged amlodipine Contact prescribing physician if questions or concerns Unchanged busPIRone Contact prescribing physician if questions or concerns Unchanged clonidine Contact prescribing physician if questions or concerns Unchanged hydrochlorothiazide-lisinopril Contact prescribing physician if questions or concerns Unchanged ibuprofen Contact prescribing physician if questions or concerns Unchanged metoprolol Contact prescribing physician if questions or concerns Unchanged potassium chloride (Klor-Con) Contact prescribing physician if questions or concerns Pharmacy Information [facility]: [address], [place] [id number] [phone] Medications and Immunizations Administered Not Given influenza virus vaccine, inactivated, Patient Refuses Allergies ketorolac (Unknown, Hallucinating) Problems Ongoing - Any problem that you are currently receiving treatment for. Screen for colon cancer Education Materials Colonoscopy, Adult A colonoscopy is an exam to look at the entire large intestine. During the exam, a lubricated, flexible tube that has a camera on the end of it is inserted into the anus and then passed into the rectum, colon, and other parts of the large intestine. You may have a colonoscopy as a part of normal colorectal screening or if you have certain symptoms, such as: ? Lack of red blood cells (anemia). ? Diarrhea that does not go away. ? Abdominal pain. ? Blood in your stool (feces). A colonoscopy can help screen for and diagnose medical problems, including: ? Tumors. ? Polyps. ? Inflammation. ? Areas of bleeding. Tell a health care provider about: ? Any allergies you have. ? All medicines you are taking, including vitamins, herbs, eye drops, creams, and kqmq-tbh-cfaykwv medicines. ? Any problems you or family members have had with anesthetic medicines. ? Any blood disorders you have. ? Any surgeries you have had. ? Any medical conditions you have. ? Any problems you have had passing stool. What are the risks? Generally, this is a safe procedure. However, problems may occur, including: ? Bleeding. ? A tear in the intestine. ? A reaction to medicines given during the exam. ? Infection (rare). What happens before the procedure? Eating and drinking restrictions Follow instructions from your health care provider about eating and drinking, which may include: ? A few days before the procedure ? follow a low-fiber diet. Avoid nuts, seeds, dried fruit, raw fruits, and vegetables. ? 1?3 days before the procedure ? follow a clear liquid diet. Drink only clear liquids, such as clearbroth or bouillon, black coffee or tea, clear juice, clear soft drinks or sports drinks, gelatin dessert, and popsicles. Avoid any liquids that contain red or purple dye. ? On the day of the procedure ? do not eat or drink anything starting 2 hours before the procedure, or within the time period that your health care provider recommends. Up to 2 hours before the procedure, you may continue to drink clear liquids, such as water or clear fruit juice. Bowel prep If you were prescribed an oral bowel prep to clean out your colon: ? Take it as told by your health care provider. Starting the day before your procedure, you will needto drink a large amount of medicated liquid. The liquid will cause you to have multiple loose stools until your stool is almost clear or light green. ? If your skin or anus gets irritated from diarrhea, you may use these to relieve the irritation: ? Medicated wipes, such as adult wet wipes with aloe and vitamin E. ? A skin-soothing product like petroleum jelly. ? If you vomit while drinking the bowel prep, take a break for up to 60 minutes and then begin t (more content not included)...[facility] Office/Clinic Noteon [id number] Office/Clinic NoteChief Complaint Colonoscopy HPI Staff This is a 46 year old female who presents today to schedule a colonoscopy. Patient was referred by Daija Hill [employer]. History of Present Illness Patient is a 46-year-old female who presents for referral from her PCP? Daija Hill for colonoscopy. PMH of HTN- managed by patient's PCP. Family history of colon cancer: Denies. Family history of colon polyps: Denies. Personal history of colon cancer: Denies. Personal history of colon polyps: Denies. Anticoagulation therapy: Denies. Antiplatelet therapy: Denies. During today's visit, patient reports hx. diverticulitis in 2020. Is currently having 1-2 BMs daily, formed in consistency. Denies change in shape of stool. Rare occasions of hard stools. Slightly smaller amount of stool than 2 years ago. Explains 2 years ago, was having 2-3 formed BMs daily. Denies black/bloody stools, abdominal pain, rectal bleeding, nausea/vomiting, and denies unintentional weight loss. Denies having any other GI complaints. Review of Systems PHQ Score Initial Depression Screen Score: 0 ROS - Provider Constitutional: no fever, no chills. Skin: no Jaundice. ENMT: Denies dysphagia and heartburn. Respiratory: no shortness of breath. Cardiovascular: no chest pain. Gastrointestinal: no nausea, no vomiting, no diarrhea, no GI bleeding. Physical Exam Vitals & Measurements T: 36.5 ?C(Temporal Artery) HR: 59(Peripheral) BP: 119/81 HT: 67 in HT: 171.4 cm WT: 110.4 kg WT: 242.88 lb BMI: 37.58 General: Well developed, well nourished, in no acute distress Head: Normocephalic/atraumatic Lungs: Normal respiratory effort and clear to auscultation Cardio: Regular rate and rhythm, normal S1 and S2, no murmur, no rub Abdomen: Soft, non-distended, non-tender. Normoactive bowel sounds present in all 4 abdominal quadrants, bilaterally. Mental Status: Alert and oriented x3. Normal mood and affect Assessment/Plan 1. Screen for colon cancer (Z12.11: Encounter for screening for malignant neoplasm of colon) Hx. diverticulitis in 2020. Is currently having 1-2 BMs daily, formed in consistency. Slightly smaller amount of stool than 2 years ago. Ordered Colonoscopy. Denies anticoagulation therapy. Ordered: Colonoscopy (Hospital Procedure) Orders: polyethylene glycol 3350 with electrolytes, See Instructions, 1 EA, Refill(s) 0, Prior to colonoscopy., [facility], 171.4, cm, 05/08/22 8:50:00 EDT, Height/Length Dosing, 110.4, kg, 05/08/22 8:50:00 EDT, Weight Dosing Follow-up With When Contact Information Kathy Goel CNP Within 1 to 2 weeks Additional Instructions: Following colonoscopy. Patient Education Colonoscopy, Adult Problem List/Past Medical History Ongoing Screen for colon cancer Historical No qualifying data Medications amlodipine busPIRone clonidine hydrochlorothiazide-lisinopril ibuprofen Klor-Con metoprolol Plenvu oral powder for reconstitution, See Instructions Allergies ketorolac (Unknown, Hallucinating) Social History Tobacco Never (less than 100 in lifetime) Tobacco Use:. Never Smokeless Tobacco Use:., 05/08/2022 Family History Heart disease: Grandparent. Immunizations Vaccine Date Status Comments influenza virus vaccine, inactivated - Not Given Patient Refuses measles/mumps/rubella virus vaccine 04/16/2022 Recorded hepatitis B adult vaccine 04/16/2022 Recorded SARS-CoV-2 (COVID-19) mRNA BNT-162b2 vax 10/18/2020 Recorded SARS-CoV-2 (COVID-19) mRNA BNT-162b2 vax 09/18/2020 Recorded diphtheria/pertussis, acel/tetanus adult 07/16/2020 Recorded influenza virus vaccine, inactivated 12/01/2013 RecordedNoMercy Health Anderson HospitalComment on above:Result Comment: Electronically Signed By: Kathy Goel CNP\.br\Date and Time Signed: 05/08/22 09:08 EDTPatient Educationon [id number] EducationRadiology Colonoscopy, Adult A colonoscopy is an exam to look at the entire large intestine. During the exam, a lubricated, flexible tube that has a camera on the end of it is inserted into the anus and then passed into the rectum, colon, and other parts of the large intestine. You may have a colonoscopy as a part of normal colorectal screening or if you have certain symptoms, such as: ? Lack of red blood cells (anemia). ? Diarrhea that does not go away. ? Abdominal pain. ? Blood in your stool (feces). A colonoscopy can help screen for and diagnose medical problems, including: ? Tumors. ? Polyps. ? Inflammation. ? Areas of bleeding. Tell a health care provider about: ? Any allergies you have. ? All medicines you are taking, including vitamins, herbs, eye drops, creams, and zdnr-sjp-lqyirhe medicines. ? Any problems you or family members have had with anesthetic medicines. ? Any blood disorders you have. ? Any surgeries you have had. ? Any medical conditions you have. ? Any problems you have had passing stool. What are the risks? Generally, this is a safe procedure. However, problems may occur, including: ? Bleeding. ? A tear in the intestine. ? A reaction to medicines given during the exam. ? Infection (rare). What happens before the procedure? Eating and drinking restrictions Follow instructions from your health care provider about eating and drinking, which may include: ? A few days before the procedure ? follow a low-fiber diet. Avoid nuts, seeds, dried fruit, raw fruits, and vegetables. ? 1?3 days before the procedure ? follow a clear liquid diet. Drink only clear liquids, such as clear broth or bouillon, black coffee or tea, clear juice, clear soft drinks or sports drinks, gelatin dessert, and popsicles. Avoid any liquids that contain red or purple dye. ? On the day of the procedure ? do not eat or drink anything starting 2 hours before the procedure,or within the time period that your health care provider recommends. Up to 2 hours before the procedure, you may continue to drink clear liquids, such as water or clear fruit juice. Bowel prep If you were prescribed an oral bowel prep to clean out your colon: ? Take it as told by your health care provider. Starting the day before your procedure, you will need to drink a large amount of medicated liquid. The liquid will cause you to have multiple loose stools until your stool is almost clear or light green. ? If your skin or anus gets irritated from diarrhea, you may use these to relieve the irritation: ? Medicated wipes, such as adult wet wipes with aloe and vitamin E. ? A skin-soothing product like petroleum jelly. ? If you vomit while drinking the bowel prep, take a break for up to 60 minutes and then begin the bowel prep again. If vomiting continues and you cannot take the bowel prep without vomiting, call your health care provider. ? To clean out your colon, you may also be given: ? Laxative medicines. ? Instructions about how to use an enema. General instructions ? Ask your health care provider about: ? Changing or stopping your regular medicines or supplements. This is especially important if you are taking iron supplements, diabetes medicines, or blood thinners. ? Taking medicines such as aspirin and ibuprofen. These medicines can thin your blood. Do not take these medicines before the procedure if your health care provider tells you not to. ? Plan to have someone take you home from the hospital or clinic. What happens during the procedure? ? An IV may be inserted into one of your veins. ? You will be given medicine to help you relax (sedative). ? To reduce your risk of infection: ? Your health care team will wash or sanitize their hands. ? Your anal area will be washed with soap. ? You will be asked to lie on your side with your knees bent. ? Your health care provider will lubricate a long, thin, flexible tube. The tube will have a cameraand a light on the end. ? The tube will be inserted into your anus. ? The tube will be gently eased through your rectum and colon. ? Air will be delivered into your colon to keep it open. You may feel some pressure or cramping. ? The camera will be used to take images during the procedure. ? A small tissue sample may be removed to be examined under a microscope (biopsy). ? If small polyps are found, your health care provider may remove them and have them checked for cancer cells. ? When the exam is done, the tube will be removed. The procedure may vary among health care providers and hospitals. What happens after the procedure? ? Your blood pressure, heart rate, breathing rate, and blood oxygen level will be monitored until the medicines you were given have worn off. ? Do not drive for 24 hours after the exam. ? You may have a small amount of blood in your stool. ? You may pass gas and have mild abdominal cramping or bloating due to the air t (more content not included)...[facility] MemorialProvider Letteron [phone] Letter April 16, 2022 TAMIKA DIEZ [address] [place] [address] TAMIKA DIEZ 1975 Dear Tamika , We have been trying to reach you with no success. It is important that you return our call regarding your referral for a consultation at our office upon receiving this letter. Also, at the time of your call, please provide us with your current information. Thank you for your prompt attention to this matter. Sincerely, [facility] [phone] Health Anderson HospitalPhysician Referralon 04-14-2022 Physician [id number]:127Normal [facility] CenterMG [facility] MELODIE CADon [id number] MAMM SCREEN 3D MELODIE CADPatient: EVELYN DIEZALICIACALIXTO Rod Exam Date: 10/29/2021 : 1975 Gender:F Ordering : DR DWAYNE BERMUDEZ . Admission #: [id number] Family : Order #: [id number] CLICK HERE TO VIEW EXAM RADIOLOGY REPORT PROCEDURE: MAMMOGRAM SCREENING 3D BILATERAL CAD COMPARISON: MG MAMM SCREEN 3D MELODIE CAD, 08/07/2020. MG MAMM SCREEN MELODIE W CAD, 03/10/2019. INDICATIONS: Screening mammography Calculator Name NCI Breast Cancer Risk Assessment Tool 5 Year Breast Cancer Risk 1.00% Lifetime Breast Cancer Risk 9.00% Personal Breast Cancer No Personal Ovarian Cancer No Treatments None Family Cancers None LOCATION: [facility] BREAST COMPOSITION: Scattered areas fibroglandular density. FINDINGS: DIAGNOSTIC CATEGORY 1--NEGATIVE. RIGHT BREAST: No significant suspicious finding. No significant change has occurred. LEFT BREAST: No significant suspicious finding. No significant change has occurred. RECOMMENDATIONS: ROUTINE MAMMOGRAM AND CLINICAL EVALUATION IN 12 MONTHS. PLEASE NOTE: A NORMAL MAMMOGRAM DOES NOT EXCLUDE THE POSSIBILITY OF BREAST CANCER. A CLINICALLY SUSPICIOUS PALPABLE LUMP SHOULD BE BIOPSIED. Dictated by: Carlos Jarquin M.D. on 10/30/2021 at 10:36 Approved by: Carlos Jarquin M.D. on 10/30/2021 at 10:41[facility] PANEL 2: 30 to 65on 10-04-2021..NormalGuernsey [facility] Comment on above:Result Comment: Performed at: WBPerformed By: #### [id number] #### [facility] [address] [place] [address] Dr. Kellie IbarraAge Gdln ACOG [id number] University of Toledo Medical CenterComment on above:Performed By: #### [id number] #### [facility] [address] [place] [address] Dr. Kellie IbarraDIAGNOSIS:CommentThe University of Toledo Medical CenterComtrinity health [facility] on above: Result Comment: NEGATIVE FOR INTRAEPITHELIAL LESION OR MALIGNANCY. Performed at: WBPerformed By: #### [id number] #### [facility] [address] [place] [address] Dr. Kellie IbarraHPV AptimaNegativeNormalNegativeGuernsey Memorial HospitalComment on above:Result Comment: This nucleic acid amplification test detects fourteen high-risk HPV types (16,18,31,33,35,39,45,51,52,56,58,59,66,68) without differentiation. Performed at: =GPerformed By: #### [id number] #### [facility] [address] [place] [address] Dr. Kellie IbarraMethodology:CommentBlanchard Valley Health System [facility] on above: Result Comment: This liquid based ThinPrep(R) pap test was screened with the use of an image guided system. Performed at: WBPerformed By: #### [id number] #### [facility] [address] [place] [address] Dr. Kellie IbarraNote:CommentThe University of Toledo Medical CenterComtrinity health [facility] on above:Result Comment: The Pap smear is a screening test designed to aid in the detection of premalignant and malignant conditions of the uterine cervix. It is not a diagnostic procedure and should not be used as the sole means of detecting cervical cancer. Both false-positive and false-negative reports do occur. . Performed at: WBPerformed By: #### [id number] #### [facility] [address] [place] [address] Dr. Kellie IbarraPerformed by:CommentBlanchard Valley Health System [facility] on above: Result Comment: Daija Mccartney, Asphalt Smoother (ASCP) Performed at: WBPerformed By: #### [id number] #### [facility] [address] [place] [address] Dr. Kellie IbarraSpecimen adequacy:[facility] on above:Result Comment: Satisfactory for evaluation. Endocervical and/or squamous metaplastic cells (endocervical component) are present. Performed at: WBPerformed By: #### [id number] #### [facility] [address] [place] [address] Dr. Kellie IbarraActivated partial thromboplastin time (aPTT) in platelet poor plasma by coagulation aOrdered By: Jimbo Funes on [id number] Coag (PPP) [Time]24.5 s25.1-36.5FMarietta Osteopathic ClinicAlbumin [Mass/volume] in Serum or PlasmaOrdered By: Jimbo Funes on 07-13-2021 Albumin [Mass/Vol]3.4 g/dL3.2-5.5FMarietta Osteopathic ClinicBasophils Auto (Bld) [#/Vol]Ordered By: Jimbo Funes on 65-13-5264Blmeuwuuo (Bld) [#/Vol] 0.0 10*3/uL0.0-0.2FMarietta Osteopathic ClinicBasophils/100 WBC Auto (Bld) Ordered By: Jimbo Funes on 84-02-3877Kcbddgnbo/100 WBC (Bld)0.1 %[facility] CenterBlood hemoglobin measurement (mass/volume)Ordered By: Jimbo Funes on 87-55-3852Srfxuwpvjs (Bld) [Mass/Vol]13.3 g/dL11.8-15.4 [facility] CenterBlood leukocytes automated count (number/volume)Ordered By: Jimbo Funes on 34-71-1174LRL (Bld) [#/Vol]5.0 10*3/uL4.5-11.0[facility] CenterCOVID CepheidOrdered By: Jimbo Funes on 64-94-0315NDTA-CoV-2 (COVID-19) Ab IA QlPositiveNegative [facility] CenterComment on above:This is a duplicate InDemand Interpreting Xpert Xpress CoV-2/Flu/RSV Plus RNA by RT-PCR result to be used for statistical tracking purpose only.SARS-CoV-2 (COVID-19) RNA DENY+probe Ql (Unsp spec) [facility] CenterCreatinine and Glomerular filtration rate.predicted panel (S/P/Bld)Ordered By: Jimbo Funes on 07-13-2021 Creatinine [Mass/Vol]0.90 mg/dL0.44-1.03[facility] Eosinophils Auto (Bld) [#/Vol]Ordered By: Jimbo Funes on 07-13-2021 Eosinophils (Bld) [#/Vol]0.1 10*3/uL0.0-0.45[facility] Eosinophils/100 WBC Auto (Bld)Ordered By: Jimbo Funes on 07-13-2021 Eosinophils/100 WBC (Bld)1.3 %[facility] CenterErythrocyte distribution width Auto (RBC) [Ratio]Ordered By: Jmibo Funes on 07-13-2021 Erythrocyte distribution width (RBC) [Ratio]12.9 %11.9-15.3FMarietta Osteopathic ClinicEstimated glomerular filtration rate (GFR) non- Ordered By: Jimbo Funes on 38-89-2637NEI/1.73 sq M.predicted among non- blacks MDRD (S/P/Bld) [Vol rate/Area]> 60 mL/MinLakehealth Tripoint Medical CenterGlobulin Calc (S) [Mass/Vol]Ordered By: Jimbo Funes on 07-13-2021 Globulin (S) [Mass/Vol]3.4 g/dLLakehealth Tripoint Medical CenterHematocrit Auto (Bld) [Volume fraction]Ordered By: Jimbo Funes on 66-16-7578Ptfndpvhzm (Bld) [Volume fraction]39.8 %34.0-46.4FMarietta Osteopathic Clinic Laboratory - Chemistry and Chemistry - challengeOrdered By: Jimbo Funes on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 return/worsen or you develop any further concerns or symptoms please see your doctor or return to the emergency department immediately.[facility] Work Phone: Hospital Discharge instructions No data available for this section [facility] Date Instruction Additional Infor mation No Information [facility] Work Phone: Progress note No data available for this section [facility] Progress note* Clinical Note Date No Information [facility] Work Phone: Reason for referral (narrative)* Reason For Referral No Information [facility] Work Phone: Reason for referral (narrative)No reason for referral [facility]: Review of systems Narrative - Reported* System Pos/Neg Findings No Information [facility] Work Phone: Summary Purpose Family History Family Member Type Diagnosis Age At Onset Father Problem (finding) gout MotherProblem (finding)hypertensionFatherProblem (finding)raised blood lipids MotherProblem (finding)raised blood lipids Relationship Condition Age at Onset Recorded Date/T loni aunt Obesity Unknown fatherHyperlipidemiaUnknownHypertensionUnknownmotherHeart diseaseUnknown Advance Directives Advance Directive Response Recorded Date/ Time Advance Directives No December 6:42pm Directive Yes / No Effective Date File Name No Information Chief Complaint and Reason for Visit Chief Complaint chest pain, body ach es Reason for Referral SpecialtyDiagnoses / ProceduresReferred By ContactReferred To Contact Diagnoses Primary hypertension Procedures ECG 12 Lead Tommie Ceja MD [address] [facility] 2, [address] [place] [phone] Referral IDStatusReasonSchuylkill Haven DateExpiration DateVisits RequestedVisits [id number]/30/20244/30/[id number] / Procedures Referred By ContactReferred To ContactCardiology Diagnoses Primary hypertension Procedures Follow Up In Cardiology Tommie Ceja MD [address] [facility] 2, [address] [place] [address] Tommie Ceja MD [address] [facility] [address] [place] [address] Referral IDStatusReasonStart DateExpiration DateVisits RequestedVisits [id number]/30/20244/30/[id number] Additional Source Comments INFORMATION SOURCE (unrecogn ized section and content) DATE CREATED AUTHOR 02/10/2018 [facility] DATE CREATED AUTHOR AUTHOR'S ORGANIZ ATION 04/10/2019 [facility] DATE CREATED AUTHOR AUTHOR'S ORGANIZ ATION 11/02/2021 [facility] DATE CREATED AUTHOR AUTHOR'S ORGANIZ ATION 09/25/2022 [facility] DATE CREATED AUTHOR AUTHOR'S ORGANIZ ATION 12/29/2023 [facility] DATE CREATED AUTHOR AUTHOR'S ORGANIZ ATION 04/06/2024 [facility] DATE CREATED AUTHOR AUTHOR'S ORGANIZ ATION 09/13/2024 [facility] DATE CREATED AUTHOR AUTHOR'S ORGANIZ ATION 11/25/2024 [facility] Care Teams (unrecognized sec tion and content) Team Status: Inactive Member Role Status Dates [facility] Active Nestor Romo DOFamily ProviderActiveAlexamartin Funes DO Emergency ProviderActive Team Status: Active Member Role Status Dates Nestor Romo DO Family Provider Active [facility] Care ProviderActiveTeam MemberRelationshipSpecialty Start DateEnd Date Daija Dewey [address] [place] [address] PCP - General06/23/23Team MemberRelationshipSpecialtyStart DateEnd Date Daija Hill NP [address] [place] [address] PCP - General10/27/22Team MemberRelationshipSpecialtyStart DateEnd Date Daija Hill NP [address] [place] [address] PCP - General10/27/22Team MemberRelationshipSpecialtyStart DateEnd Date Daija Hill NP [address] [place] [address] PCP - General10/27/22Team MemberRelationshipSpecialtyStart DateEnd Date Daija Hill [address] [place] [address] PCP - General06/23/23 Name Effective Dates (start - stop) Status Members No Information Team Status: Inactive Member Role Status Dates [facility] Primary Care Provider Active Start: November 18, 2024 End: November 18felicita MCDONALD DO CHCAttending ProviderActive Start: November 18, 2024 End: November 18, 2024Team MemberRelationshipSpecialtyStart DateEnd Date Daija Hill NP [address] [place] [phone] PCP - General10/27/22 Goals (unrecognized section and content) Health Concern Goal Type Priority Status No Information Reason for Visit (unrecogniz ed section and content) ReasonCommentsNew Patient VisitRe-establish from 04/05/2019SpecialtyDiagnoses / ProceduresReferred By ContactReferred To Contact Diagnoses Primary hypertension Procedures ECG 12 Lead Tommie Ceja MD [address] [facility] 2, [address] [address] Referral IDStatusReasonStart DateExpiration DateVisits RequestedVisits [id number]/30/20244/30/913409TpxtrvSrlqyjdzXfzuaxbmqgy Exam ReasonCommentsFollow-upOverdue. Last FOR RECORDS PERTAINING TO PATIENTS WHO ARE OR HAVE BEEN ENROLLED IN A CHEMICAL DEPENDENCY/SUBSTANCEABUSE PROGRAM, SOME INFORMATION MAY BE OMITTED. This clinical summary was aggregated from multiple sources. Caution should be exercised in using it in the provision of clinical care. This summary normalizes information from multiple sources, and as a consequence, information in this document may materially change the coding, format and clinical context of patient data. In addition, data may be omitted in some cases. CLINICAL DECISIONS SHOULD BE BASED ON THE PRIMARY CLINICAL RECORDS. [employer] [facility]. provides no warranty or guarantee of the accuracy or completeness of information in this document.
--- OUTSIDE RECORDS SUMMARY | 2025-01-16 20:51 | XMS_ITS | Clinical Summary ---
Author Organization [facility] Address [address] [address] Care Team Providers Care Python Developer Name Role Phone Daija Daly NP Primary Care Provider [phone] Allergies Active AllergyReactionsCriticalityNoted DateCommentsKetorolacHallucinations 07/13/2021 Other Reaction(s): Hallucinating, Other (see comments), Unknown Other Reaction(s): Hallucinating Ketorolac GdictpvwvmovMovklnhwpjdkrx70/07/2023 Medications MedicationSigDispense QuantityRefillsLast FilledStart DateEnd DateStatus amLODIPine (Norvasc) 1 mg/mL solution Refills(s) 0, High blood ufzqxeip67/14/2023ctive cloNIDine (Catapres) 0.1 MG tablet Active ibuprofen (Ibuprofen 100 Jesse Strength) 100 MG chewable tablet Refills(s) 0, Pain05/06/2022ctive potassium chloride CR (Klor-Con) 8 MEQ ER tablet Refills(s) 0, Tlqmbdhdvfi13/14/2023ctive LISINOPRIL & DIET MANAGE PROD PO Active metoprolol tartrate (Lopressor) 5 MG/5ML injection Active Potassium 99 MG tablet Active BUSPIRONE HCL PO Refills(s) 0, Ddkvagq9605/06/2022ctive LISINOPRIL-HYDROCHLOROTHIAZIDE PO Refill(s) 0, High blood vgdnwotr86/14/2023ctive valACYclovir (Valtrex) 500 MG tablet Indications:HerpesTake 1 tablet (500 mg) by mouth Daily 30 tablet 110/504/ctive cephalexin (Keflex) 500 MG capsule Indications:Burning with urinationTake 1 capsule (500 mg) by mouth in the morning and 1 capsule (500 mg) before bedtime. Do all this for 10 days. 20 capsule 512/5Active Active Problems No known active problems Encounters DateTypeDepartmentCare FmrmUoxvfviktje22/24/2025 1:00 PM ESTOffice Visit [facility] [address] [place] [address] [place] [address] Angely Carvajal PA Well woman exam with routine gynecological exam; Encounter for screening mammogram for malignant neoplasm of breast; Encounter for osteoporosis screening in asymptomatic postmenopausal patient; Burning with urination; Urinary tract infection with hematuria, site unspecified; Screening examination for STI01/16/2025amboo flowsheet [facility] [address] [place] [address] [place] [address] Angely Carvajal PA from Last 3 Months Social History Tobacco UseTypesPacks/DayYears UsedDateSmoking Tobacco: Every DayCigarettes Tobacco Cessation:Ready to Q uit: Not Asked; Counseling Given: Not Answered CommentsUnknownSex and Gender InformationValueDate RecordedSex Assigned at BirthNot on fileLegal CkqKwdiap21/15/2023 6:48 PM EDTGender IdentityNot on fileSexual OrientationNot on file Last Filed Vital Signs Vital SignReadingTime TakenCommentsBlood Dmxuiery622/7801/16/2025 1:23 PM EST Pulse--Temperature--Respiratory Rate--Oxygen Saturation--Inhaled Oxygen Concentration--Vvojwb67.2 kg (179 lb)01/16/2025 1:23 PM MMGLcikxe626.2 cm (5' 7 )01/16/2025 1:23 PM ESTBody Mass Index28.04103/18/2024 1:23 PM EST Plan of Treatment DateTypeDepartmentCare Team (Latest Contact Info)Qrnlevtivaq29/30/2026 2:00 PM ESTProcedure Visit [facility] [address] [place] [address] [place] [address] Angely Carvajal, PA [address] [place] [address] [address] [place], [facility] Health MaintenanceDue DateLast DoneCommentsCT Xstykmgrbnwv55/28/1974FIT-DNA 1973FIT1973FOBT1973 8247Emyswhyxpcfdf52/28/1974COVID-19 Vaccine ( season)508/, 09/18/20207593Cygqurnjy32/04/21586402/26/2023, 12/16/2022, 12/08/2022ervical Cancer Tmwxqkyjh64/04/2029HPV/Fgzwbt9512/27/2028Pap Smear911/05/2023, 12/08/2022, 09/30/20217183Teuikrlwrag75/21/203307/ Colorectal Cancer Wijqsrkpl52/21/2033Influenza XterbwdDmgodxlfn99/21/2025, 12/01/2013Pneumococcal Vaccine: Pediatrics (0 to 5 Years) and At-Risk Patients (6 to 64 Years)Aged OutNo longer eligible based on patient's age to complete this topic Procedures Procedure NamePriorityDate/TimeAssociated DiagnosisCommentsPOCT URINALYSIS WHQSVWALCvhofoz87/24/2025 1:26 PM EST Burning with urination MM TOMOSYNTHESIS SCREENING BI12/28/2023 2:30 PM EST PAP LZBYQFmzwgnn62/04/2024 12:00 AM ESTfrom Last 3 Months or Most Recently Relevant to Health Maintenance Results * (ABNORMAL) POCT urinalysis dipstick manually [...] Location / LateralityCollection Method / VolumeCollection TimeReceived AxjsXfcib81/24/2025 1:26 PM EST Narrative Authorizing ProviderResult TypeResult StatusAmy [facility] OF CARE TEST ENTER/EDIT ORDERABLESFinal Result * MM TOMOSYNTHESIS SCREENING BI (12/28/2023 2:30 PM EST)Anatomical Region LateralityModalityOtherSpecimen (Source)Anatomical Location / Laterality Collection Method / VolumeCollection TimeReceived Time12/28/2023 2:30 PM EST Narrative 12/28/2023 2:31 PM EST [facility] ?[address] ? [place] [address] ? Mammography Report ? Signed ? Patient: EVELYN DIEZALICIACALIXTO L ?MR#: [id number] ?? : 1975 ?Acct:[id number] ?? Age/Sex: 48 / F ?ADM Date: 12/28/23 ?? Loc: MAMMO ? Attending Dr: Dwayne Bermudez D.O. ? Ordering Physician: Dwayne Bermudez D.O. ?Results: ? Date of Service: 12/28/23 ?Follow Up: ? Procedure(s): MM tomosynthesis screening BI ?? Accession Number(s): [id number] ? cc: Dwayne Bermudez D.O.; Physician,Non-Staff Dana ? Patient Name: ? TAMIKA DIEZ ? MR#: [id number] ? : 1975 ? Exam Date: 12/28/2023 ?? Ordering Doctor: DR Dwayne Bermudez . ? RADIOLOGY REPORT ? PROCEDURE: ? MM TOMOSYNTHESIS SCREENING BI ? COMPARISON: ? MG MAMM SCREEN 3D MELODIE CAD, 10/29/2021. ??MM TOMOSYNTHESIS ?? SCREENING BI, 12/08/2022. ? INDICATIONS: ? Screening ? Calculator Name ? NCI Breast Cancer Risk Assessment Tool ?? 5 Year Breast Cancer Risk ? 1.10% ?? Lifetime Breast Cancer Risk ? 8.70% ?? Personal Breast Cancer ?No ?? Personal Ovarian Cancer ? No ?? Treatments ? None ?? Family Cancers ? None ? LOCATION: ? [facility] ? BREAST COMPOSITION: ? There are scattered areas of fibroglandular density. ? FINDINGS: ? DIAGNOSTIC CATEGORY 1--NEGATIVE. NO CHANGE FROM COMPARISON ASSESSMENT. ? Scattered benign-appearing calcifications are present. ??Scattered ?? benign-appearing lymph nodes are present. ? RIGHT BREAST: ??No significant suspicious finding. ? LEFT BREAST: ??No significant suspicious finding. ? RECOMMENDATIONS: ? ROUTINE MAMMOGRAM AND CLINICAL EVALUATION IN 12 MONTHS. ? PLEASE NOTE: ??A NORMAL MAMMOGRAM DOES NOT EXCLUDE THE POSSIBILITY OF BREAST ?? CANCER. ??A CLINICALLY SUSPICIOUS PALPABLE LUMP SHOULD BE BIOPSIED. ? Dictated by: Tu Daly MD on 12/28/2023 at 14:29 ? Approved by: Tu Daly MD on 12/28/2023 at 14:30 ? Dictated By: ?Tu Daly M.D. ? Signed By: ?12/28/23 1431 ? DD/ 1430 ? TD/TT: ? Retail Event Assistant: Procedure Note Radiology, Radiologist, MD - 12/28/2023 [facility] [place] [id number] Mammography Report Signed Patient: TAMIKA DIEZ LMR#: [id number] : 1975Acct:[id number] Age/Sex: 48 / FADM Date: 12/28/23 Loc: MAMMO Attending Dr: Dwayne Bermudez D.O. Ordering Physician: Dwayne Bermudez D.O.Results: Date of Service: 12/28/23Follow Up: Procedure(s): MM tomosynthesis screening BI Accession Number(s): [id number] cc: Dwayne Bermudez D.O.; Physician,Non-Staff Dana Patient Name: TAMIKA DIEZ MR#: [id number] : 1975 Exam Date: 12/28/2023 Ordering Doctor: [...] Treatments None Family Cancers None LOCATION: [facility] BREAST COMPOSITION: There are scattered areas of fibroglandulardensity. FINDINGS: DIAGNOSTIC CATEGORY 1--NEGATIVE. NO CHANGE FROM COMPARISON ASSESSMENT. Scattered benign-appearing calcifications are present. Scattered benign-appearing lymph nodes are present. RIGHT BREAST: No significant suspicious finding. LEFT BREAST: No significant suspicious finding. RECOMMENDATIONS: ROUTINE MAMMOGRAM AND CLINICAL EVALUATION IN 12 MONTHS. PLEASE NOTE: A NORMAL MAMMOGRAM DOES NOT EXCLUDE THE POSSIBILITY OFBREAST CANCER. A CLINICALLY SUSPICIOUS PALPABLE LUMP SHOULD BE BIOPSIED. Dictated by: Tu Daly MD on 12/28/2023 at 14:29 Approved by: Tu Daly MD on 12/28/2023 at 14:30 Dictated By: Tu Daly M.D. Signed By:12/28/23 1431 DD/ 1430 TD/TT: Retail Event Assistant: Authorizing ProviderResult TypeResult StatusCorey Aidan DOCLINISYNC IMAGINGFinal Result * Pap Smear (12/28/2023 12:00 AM EST)Specimen (Source)Anatomical Location / LateralityCollection Method / VolumeCollection TimeReceived TimeSwabCervical swab / Unknown Narrative Authorizing ProviderResult TypeResult StatusAmy Alena PAL CYTOLOGY ORDERABLES Final ResultPerforming OrganizationAddressCity/State/ZIP CodePhone Number EXTERNAL LAB from Last 3 Months or Most Recently Relevant to Health Maintenance Insurance Care Teams Team MemberRelationshipSpecialtyStart DateEnd Daija Daly NP [address] [place] [phone] PCP - [facility]10/27/22
--- OUTSIDE RECORDS SUMMARY | 2025-01-16 20:51 | XMS_ITS | Encounter Summary ---
Author Organization [facility] Address [address] [facility] [place] [address] Care Team Providers Care Pipe Coverer And Insulator Name Role Phone Daija Daly NP Primary Care Provider [phone] Encounter Details DateTypeDepartmentCare Team (Latest Contact Info)Feudoeayofx68/24/2025amboo flowsheet [facility] [address] [facility] [address] Angely Carvajal PA [address] [facility] [address], [facility] Social History Tobacco UseTypesPacks/DayYears UsedDateSmoking Tobacco: Every DayCigarettes CommentsUnknownSex and Gender InformationValueDate RecordedSex Assigned at BirthNot on fileLegal BrlKnadag83/15/2023 6:48 PM EDTGender IdentityNot on fileSexual OrientationNot on filedocumented as of this encounter Plan of Treatment DateTypeDepartmentCare Team (Latest Contact Info)Tearfvwxsyk04/30/2026 2:00 PM ESTProcedure Visit [facility] [address] [facility] [place] [address] Angely Carvajal, PA [address] [facility] [address], [facility] documented as of this encounter Visit Diagnoses Not on filedocumented in this encounter Care Teams Team MemberRelationshipSpecialtyStart DateEnd Date Daija Daly NP [address] [place] [phone] [facility]10/27/22documented as of this encounter
[2025-01-18 20:09] LABS: Age Gdln ACOG Testing Note (.); IGP, Aptima HPV, rfx 16/18,45 Note (.)
== END 2025-01-16 20:47 | disposition home or self-care (01) ==
LOC: LAB 20:46
PROVIDERS: Visit Provider Physician Assistant
DX: Z01.419 Encounter for gynecological examination (general) (routine) without abnormal findings (principal)
CPT/HCPCS: 88175